=== PATIENT | female | born 1985 | race Caucasian/White ===

== ENCOUNTER 2022-05-01 14:47 | Emergency (ER) | payer BC, OTHER ==
--- OUTSIDE RECORDS SUMMARY | 2022-05-01 14:51 | XMS REPORT | Continuity of Care Document ---
:1985 Author Organization [facility] t Address [address] [place] [address] Care Team Providers Name Role Phone PCP, PATIENT DOES NOT HAVE A Primary Care Physician UnavailETHAN Lambert Attending Clinician Unavailable Ethan Martinez Attending Clinician TAYLOR FUENTES Attending Clinician Unavailable Taylor Fuentes MD Attending Clinician Kike Dale Attending Clinician Doctor Unassigned, [place] Attending Clinician Unavailable Hola Sanford Attending Clinician TAYLOR FUENTES Admitting Clinician Unavailable Payers Payer Name Policy Type Policy Number Effective Date Expiration Date [facility] [id number] 2016 CHOICE MEDICAID 00:00:00 [facility] [place] [id number] 2018 00:00:00 Problems Condition Condition Condition Status Onset Resolution Last Treating Co mments Source Name Details Category Date Date Treatment Clinician Date Well woman Well woman Disease Active U nivers exam exam 5-17 ity of 00:00: [place] 00 Medical Branch Over Over Disease Active Univers weight weight 5-17 ity of 00:00: [place] 00 Medical Branch History of History of Disease Active U nivers tubal tubal 1-11 ity of ligation ligation 00:00: [place] 00 Medical Branch Pain in Pain in Problem Active 2021-04-06 Me moria upper limb upper limb 21:26:47 l (finding) (finding) Julio vickers Active Problem 04/06/2021 Andrew Neuro Paresthesi Problem Active 2021-04-06 Gil ramírez Paresthesi 21:26:47 l (finding) a [place] (finding) Active Problem 04/06/2021 [facility] Headache Headache Problem Active 2021-04-06 Memoria (finding) (finding) 21:26:47 l Active Pedro Problem 04/06/2021 [facility] Migraine Migraine Problem Active 2021-04-06 Memoria (disorder) (disorder) 21:26:47 l Active [place] Problem 04/06/2021 [facility] Vertigo Vertigo Problem Active 2021-04-06 Me moria (finding) (finding) 21:26:47 l Active Pedro Problem 04/06/2021 [facility] Allergies, Adverse Reactions, Alerts Allergy Allergy Status Severity Reaction(s) Onset Inactive Treating Comm ents Source Name Type Date Date Clinician CETIRIZI DRUG Active Other-Cmnt Univ ers NE INGREDI 04-29 ity of 00:00: [place] 00 Medical Branch Cetirizi Propensi Active Other - See U nivers ne ty to comments 04-29 ity of adverse 00:00: [place] reaction 00 Medical s Branch Hydrocod Propensi Active Itching Pt Unive rs one ty to 03-17 reports ity of adverse 00:00: gets 'red [place] reaction 00 and Medical s itchy',ca Branch n take Tyenol #3 without problems though HYDROCOD DRUG Active ITCHING Univers ONE INGREDI 03-17 ity of 00:00: [place] 00 Medical Branch hydrocod hydrocod Active Memori a one one l [place] Social History Social Habit Start Date Stop Date Quantity Comments Source History of Cigarette Smoker Universi ty of tobacco use [facility] Exposure to 2022-04-19 2022-04-29 Unable to assess Univers ity of SARS-CoV-2 00:00:00 13:06:00 [facility] (event) Branch Social History 2020-06-18 2020-06-18 Yandel gasca 18:22:40 18:22:40 Alcohol intake 2017-01-07 2017-01-07 0 /d University of 00:00:00 00:00:00 [facility] Tobacco Comment 2016-04-14 2016-04-14 pt states she Univer sity of 00:00:00 00:00:00 smokes a couple of [place] Medical cigarettes per day Branch Sex Ass[birth year] At [birth year] Universit y of 00:00:00 00:00:00 [facility] Smoking Status Start Date Stop Date Source Smokes tobacco daily 2016-04-14 00:00:[address] [facility] ity of [facility] Medications Ordered Filled Start Stop Current Ordering Indication Dosage Frequency Signature Comments Components Source Medication Medication Date Date Medication? Clinician (SIG) Name Name meek- 2021- No 1{tbl} 1 tablet, [facility] acetaminoph 04-29 Oral, ity of en-caff 23:30: 23:10 ONCE, 1 [place] (ESGIC) 00 :00 dose, On Medical 50-325-40 04/29/22 Bran ch mg tablet 1 at 1830, tablet Routine LORazepam 2021- No .5mg 0.5 mg, [facility] ers (ATIVAN) 04-29 Oral, ity of tablet 0.5 23:00: 23:09 ONCE, 1 [place] as mg 00 :00 dose, On [facility] 04/29/22 Branch at 1800, MARCELLE ibuprofen 2021- No 800mg 800 mg, Uni vers (IBU) 04-29 Oral, ity of tablet 800 22:00: 21:58 ONCE, 1 [place] as mg 00 :00 dose, On [facility] 04/29/22 Branch at 1700, MARCELLE ondansetron 2021- No 4mg 4 mg, [facility] (ZOFRAN-ODT 04-29 Oral, ity of ) 21:15: 21:09 ONCE, 1 [place] disintegrat 00 :00 dose, On Medi jordan ing tablet Thu04/29/22 Bra nch 4 mg at 1615, Routine proMETHazin Yes [id number] 25mg Take 1 Univers e 25 mg 04-29 tablet by ity of tablet 00:00: mouth [place] 00 every 6 Medical (six) Branch hours as needed for Nausea and Vomiting (N/V). 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 meloxicam 2019-08 Yes 7.5 mg = 1 Me moria 7.5 mg oral 0-26 tab, PO, l tablet 18:27: Daily, # Pedro 00 30 tab, 0 Refill(s) Ibuprofen 2019-08 Yes 400 mg = 2 Me moria 200 MG Oral 0-26 cap, PO, l Capsule 18:27: Q4H, PRN Blake n [Advil] 00 Pain, # 120 cap, 0 Refill(s) meclizine 2020- No 25mg 25 mg, Unive rs (TRAVEL-EAS 05-18 Oral, ity of E 02:45: 01:57 ONCE, 1 [place] (MECLIZINE) 00 :00 dose, [facility] Med ical ) tablet 25 05/17/20 at Br anch mg 2145, MARCELLE iohexol 2019- No 120mL 120 mL, Unive rs (OMNIPAQUE 05-18 Intravenou it y of 350 00:00: 00:00 s, ONCE, 1 [place] BULK-150 00 :00 dose, [facility] Medica l mL) 05/17/20 at Branch injection 1900, 120 mL Routine ondansetron 2019- No 4mg 4 mg, Slow Univers (ZOFRAN 05-17 IV Push, ity of (PF)) 23:00: 21:52 ONCE, 1 [place] injection 4 00 :00 dose, [facility] Med ical mg 05/17/20 at Branch 1800, MARCELLE NaCl 0.9% 2020- No 1000mL at 999 Uni vers (NS) bolus 05-17 mL/hr, ity of infusion 22:00: 01:00 1,000 mL, [place] as 1,000 mL 00 :00 IV Medical Infusion, Branch ONCE, 1 dose, Hoda 05/17/20 at 1700, STAT ibuprofen Yes 600mg Take 1 Unive rs 600 mg 3-31 tablet by ity of tablet 00:00: mouth [place] 00 every 6 Medical (six) Branch hours as needed for Pain (scale 1-3) or Pain (scale 4-6). Take with food or milk. ibuprofen 2017-0 Yes 600mg Take 1 Unive rs 600 mg 3-31 tablet by ity of tablet 00:00: mouth [place] 00 every 6 Medical (six) Branch hours as needed for Pain (scale 1-3) or Pain (scale 4-6). Take with food or milk. ibuprofen 2017-0 Yes 600mg Take 1 Unive rs 600 mg 3-31 tablet by ity of tablet 00:00: mouth [place] 00 every 6 Medical (six) Branch hours as needed for Pain (scale 1-3) or Pain (scale 4-6). Take with food or milk. ibuprofen 2017-0 Yes 600mg Take 1 Unive rs 600 mg 3-31 tablet by ity of tablet 00:00: mouth [place] 00 every 6 Medical (six) Branch hours as needed for Pain (scale 1-3) or Pain (scale 4-6). Take with food or milk. Immunizations Ordered Filled Immunization Date Status Comments [facility] Immunization Name Name [facility] 2016-09-03 Completed University of 00:00:00 [facility] 2016-09-03 Completed University of 00:00:00 [facility] 2016-09-03 Completed University of 00:00:00 [facility] 2016-09-03 Completed University of 00:00:00 [facility] 2014-04-14 Completed University of 00:00:00 [facility] 2014-04-14 Completed University of 00:00:00 [facility] 2014-04-14 Completed University of 00:00:00 [facility] 2014-04-14 Completed University of 00:00:00 [facility] Vital Signs Vital Name Observation Time Observation Value Comments Source Respiratory rate 2022-04-29 23:10:00 18 /min Univ ersity of [facility] Oxygen saturation in 2022-04-29 23:10:00 99 /min [facility] Arterial blood by [facility] Pulse oximetry Branch Systolic blood 2022-04-29 23:10:00 130 mm[Hg] Univer sity of pressure [facility] Diastolic blood 2022-04-29 23:10:00 78 mm[Hg] Unive rsity of pressure [facility] Heart rate 2022-04-29 23:10:00 78 /min Universi ty [facility] [place] [facility] Body temperature 2022-04-29 18:14:00 36.67 Diane Univ ersity of [place] [facility] Systolic blood 2022-04-28 03:00:00 134 mm[Hg] Univer sity of pressure [place] [facility] Diastolic blood 2022-04-28 03:00:00 88 mm[Hg] Unive rsity of pressure [place] [facility] Heart rate 2022-04-28 03:00:00 73 /min Universi ty of [place] [facility] Respiratory rate 2022-04-28 03:00:00 10 /min Univ ersity of [place] [facility] Oxygen saturation in 2022-04-28 03:00:00 99 /min University of Arterial blood by [place] eblizz jordan Pulse oximetry Branch Body temperature 2022-04-28 01:20:00 37.22 Diane Univ ersity of [place] [facility] Body height 2022-04-28 01:20:00 165.1 cm Universi ty of [place] [facility] Body weight 2022-04-28 01:20:00 69.854 kg Universi ty of [place] [facility] BMI 2022-04-28 01:20:00 25.63 kg/m2 Universi ty [facility] [place] [facility] Systolic blood 2020-05-18 01:00:00 107 mm[Hg] Univer sity of pressure [place] [facility] Diastolic blood 2020-05-18 01:00:00 74 mm[Hg] Unive rsity of pressure [place] [facility] Heart rate 2020-05-18 01:00:00 66 /min Universi ty of [place] [facility] Respiratory rate 2020-05-18 01:00:00 17 /min Univ ersity of [place] [facility] Oxygen saturation in 2020-05-18 01:00:00 99 /min University of Arterial blood by [place] eblizz jordan Pulse oximetry Branch Body temperature 2020-05-17 19:33:00 36.67 Diane Univ ersity of [place] [facility] Body height 2020-05-17 19:33:00 162.6 cm Universi ty [facility] [place] [facility] Body weight 2020-05-17 19:33:00 79.379 kg Universi ty [facility] [place] [facility] BMI 2020-05-17 19:33:00 30.04 kg/m2 Universi ty [facility] [place] [facility] Systolic (mm Hg) 2020-09-28 20:29:00 [place] rial [place] Diastolic (mm Hg) 2020-09-28 20:29:00 Mem orial [place] Heart Rate 2020-09-28 20:29:00 [facility] [place] Respitory Rate 2020-09-28 20:29:00 Memori al [place] Height 2020-09-28 20:29:00 165.1 cm [facility] [place] Weight 2020-09-28 20:29:00 [facility] [place] BMI Calculated 2020-09-28 20:29:00 Memori al [place] Systolic (mm Hg) 2020-07-17 17:28:00 [place] rial [place] Diastolic (mm Hg) 2020-07-17 17:28:00 Mem orial [place] Heart Rate 2020-07-17 17:28:00 [facility] [place] Respitory Rate 2020-07-17 17:28:00 Memori al [place] Height 2020-07-17 17:28:00 165.1 cm [facility] [place] Weight 2020-07-17 17:28:00 [facility] [place] BMI Calculated 2020-07-17 17:28:00 Memori al [place] Systolic (mm Hg) 2020-06-18 18:21:00 [place] rial [place] Diastolic (mm Hg) 2020-06-18 18:21:00 Mem orial [place] Heart Rate 2020-06-18 18:21:00 [facility] [place] Respitory Rate 2020-06-18 18:21:00 Memori al [place] Height 2020-06-18 18:21:00 165.1 cm [facility] [place] Weight 2020-06-18 18:21:00 [facility] [place] BMI Calculated 2020-06-18 18:21:00 Memori al [place] Procedures Procedure Date / Time Performing Clinician Source Performed LIPASE 2022-04-29 19:11:00 Ethan Zhao [facility] COMP. METABOLIC PANEL 2022-04-29 19:11:00 Ethan Zhao [facility] ([id number]) Medical Branch CBC WITH DIFF 2022-04-29 19:11:00 Ethan Zhao [facility] URINALYSIS 2022-04-29 19:11:00 Ethan Zhao [facility] CONSENT/REFUSAL FOR 2022-04-29 18:07:52 Doctor Unassigned, No Un [facility] DIAGNOSIS AND TREATMENT Name Medical Branch CT HEAD WO CONTRAST 2022-04-28 02:47:18 Taylor Fuentes [facility] POCT TEST 2022-04-28 02:02:00 Taylor Fuentes [facility] COMP. METABOLIC PANEL 2022-04-28 01:59:00 Taylor Fuentes [facility] ([id number]) Medical [place] CBC WITH DIFF 2022-04-28 01:59:00 Taylor Fuentes [facility] URINALYSIS 2022-04-28 01:59:00 Taylor Fuentes [facility] URINE DRUG (IMMUNOASSAY) 2022-04-28 01:59:00 Taylor Fuentes [facility] DRUG Medical [facility] nch SCREEN W/O REFLEX NOTICE OF PRIVACY 2022-04-28 01:28:52 Doctor Unassigned, No [facility]REFUSAL FOR 2022-04-28 01:10:58 Doctor Unassigned, No [facility] AUTHORIZATION FOR 2020-06-27 06:01:00 Doctor Unassigned, No [facility] RELEASE OF PHI [facility] CT ANGIOGRAM HEAD 2020-05-17 23:57:42 Hola Rubi [facility] CT ANGIOGRAM NECK 2020-05-17 23:57:42 Hola Rubi [facility] POCT TEST 2020-05-17 21:28:00 Hola Rubi [facility] MAGNESIUM 2020-05-17 21:23:00 Hola Rubi [facility] COMP. METABOLIC PANEL 2020-05-17 21:23:00 Hola Rubi [facility] ([id number]) [facility] CBC WITH DIFF 2020-05-17 21:23:00 Hola Rubi [facility] URINALYSIS 2020-05-17 21:20:00 Hola Rubi [facility] CT HEAD WO CONTRAST 2020-05-17 21:13:44 Hola Rubi [facility] NOTICE OF PRIVACY 2020-05-17 19:11:22 Doctor Unassigned, No Univ ersity [facility] CONSENT/REFUSAL FOR 2020-05-17 19:11:10 Doctor Unassigned, No [facility]NOS[facility] AND TREATMENT Name [facility] Tubal ligation [facility] Encounters Start End Encounter Admission Attending Care Care Encounter Source Date/Time Date/Time Type Type Clinicians Facility Department ID 2021-06-21 Emergency [facility] [id number] Univers 19:17:06 ity [facility] 2022-04-29 2022-04-29 Emergency [facility] [id number] Univers 13:45:00 18:12:00 [facility] 2022-04-29 2022-04-29 [facility] [id number] Univers 13:45:00 18:12:00 Ethan TREVIÑO [id number] i ty [facility] 4.2.7.2.686 [facility] [id number] [address] 2022-04-27 2022-04-27 Emergency [facility] [id number] Univers 20:26:00 22:54:00 [facility] 2022-04-27 2022-04-27 [facility] [id number] Univers 20:26:00 22:54:00 Taylor TREVIÑO 350.1.13.10 i ty of [facility] 4.2.7.2.686 [facility] [id number] [address] 2021-04-04 2021-04-04 Ambulatory nullFlavo MNA [id number] Memoria 14:45:00 14:45:00 Pre-Reg r Neurology 07 l Reymundo Vasquez 2021-04-04 2021-04-04 Outpatient CATHI DaleSCHDARLENE [id number] 09:45:00 09:45:00 Kike Garsia 2021-03-28 2021-03-28 Outpatient MANDIIE SUDHA [id number] Memoria 14:00:00 14:00:00 07 l Pdero 2020-09-28 2020-09-29 Outpatient nullFlavo MNA [id number] Memoria 20:30:00 05:59:59 r Neurology 06 l [place] 2020-09-28 2020-09-28 Outpatient Chito, MHMISCHER MHMISCHER [id number] 14:30:00 23:59:59 Kike 06 Ady 2020-09-28 2020-09-28 Outpatient MHIE MHIE [id number] Memoria 14:30:00 14:30:00 06 yuriy Vasquez 2020-07-17 2020-07-18 Outpatient nullFlavo MNA [id number] Memoria 17:30:00 05:59:59 r Neurology 05 l Reymundo Vasquez 2020-07-17 2020-07-17 Outpatient Chito, MHMISCHER MHMISCHER [id number] 11:30:00 23:59:59 Kike 05 Ady 2020-07-17 2020-07-17 Outpatient MHIE MHIE [id number] Memoria 11:30:00 11:30:00 05 yuriy Vasquez 2020-06-27 2020-06-27 Orders Doctor MARTINEZ [id number] Univers 00:00:00 00:00:00 Only Unassigned, FLORINDA 350.1.13.10 ity of [place] [facility] 4.2.7.2.686 [place] [id number] [facility] 009 Branch 2020-06-18 2020-06-19 Outpatient nullFlavo MNA [id number] Memoria 18:30:00 04:59:59 r Neurology 04 l Reymundo Vasquez 2020-06-18 2020-06-18 Outpatient Chito, MHMISCHER MHMISCHER [id number] 13:30:00 23:59:59 Kike 04 Ady 2020-06-18 2020-06-18 Outpatient MHIE MHIE [id number] Memoria 13:30:00 13:30:00 04 yuriy Pedro 2020-05-17 2020-05-17 Emergency Hola Rubi MTANDREW [id number] Univers 14:34:00 21:34:00 Cindy Treviño 350.1.13.10 i ty of [place] 4.2.7.2.686 [facility] [id number] [facility] 084 Branch 2020-01-18 2020-01-19 Outpatient nullFlavo MNA [id number] Memoria 13:15:00 04:59:59 r Neurology 03 l [place]phine Vasquez 2020-01-18 2020-01-18 Outpatient CATHI Dale [facility] [id number] 08:15:00 23:59:59 Kike 03 Ady 2020-01-18 2020-01-18 Outpatient SUDHA HALEY [id number] [facility] 08:15:00 08:15:00 03 l Pedro Results Test Description Test Time Test Comments Results Result Comments Source COMP. METABOLIC PANEL (05577) 2022-04-29 20:06:04 Test Item Value Reference Range Interpretation Comme nts NA (test code = 4927758855) 139 mmol/L 135-145 K (test code = 6689899809) 4.0 mmol/L 3.5-5 CL (test code = 8750286039) 101 mmol/L 98-108 CO2 TOTAL (test code = 1078172025) 28 mmol/L 23-31 AGAP (test code = 2143224870) 2-16 BUN (test code = 6274547571) 5 mg/dL 7-23 L GLUCOSE (test code = 6599074794) 92 mg/dL 70-110 CREATININE (test code = 0.64 mg/dL 0.5-1.04 5189082561) TOTAL BILI (test code = 1.0 mg/dL 0.1-1.9 5210026899) CALCIUM (test code = 2751304977) 9.8 mg/dL 8.6-10.6 T PROTEIN (test code = 4081724660) 8.0 g/dL 6.3-8.2 ALBUMIN (test code = 3873939772) 4.9 g/dL 3.5-5 ALK PHOS (test code = 2236062990) 78 U/L 34-122 ALTv (test code = 1742-6) 18 U/L 5-35 AST(SGOT) (test code = 5307279375) 23 U/L 13-40 eGFR (test code = 7576628083) mL/min/1.73m2 CHANCE (test code = CHANCE) Association of Glomerular Filtration Rate (GFR) and Staging of Kidney Disease* + +-------- + ------+| GFR (mL/min/1.73 m2) ?| With Kidney Damage ?| ?Without Kidney Damage+ +-- + +| ?>90 ?| ?Stage one ?| ? Normal ?+ +------- + -------+| ?60-89 ?| ?Stage two ?| ? Decreased GFR ? + +-------- + ------+| ?30-59 ?| ?Stage three ?| ? Stage three ? + +-------- + ------+| ?15-29 ?| ?Stage four ? | ? Stage four ?+ +------- + -------+| ?<15 (or dialysis) ? ?| ?Stage five ? | ? Stage five ?+ +------- + -------+ *Each stage assumes the associated GFR level has been in effect for at least three months. ?Stages 1 to 5, with or without kidney disease, indicate chronic kidney disease. Notes: Determination of stages one and two (with eGFR >59mL/min/1.73 m2) requires estimation of kidney damage for at least three months as defined by structural or functional abnormalities of the kidney, manifested by either:Pathological abnormalities or Markers of kidney damage (including abnormalities in the composition of the blood or urine or abnormalities in imaging tests). Lab Interpretation (test code = Abnormal 10616-6) [facility]43 Test Item Value Reference Range Interpretation Comments LIPASE (test code = 1389251170) 48 U/L 0-220 Lab Interpretation (test code = Normal 86626-1) [facility] WITH [id number] 19:54:00 Test Item Value Reference Range Interpretation Comments WBC (test code = See_Comment [Automated 8100-2) message] The sy stem which generated this result transmitted reference range : 4.30 - 11.10 10*3/?L. The reference range was not used to interpret this result as normal/abnormal . RBC (test code = See_Comment [Automated 147-6) message] The sy stem which generated this result transmitted reference range : 3.93 - 5.25 10*6/?L. The reference range was not used to interpret this result as normal/abnormal . HGB (test code = 13.9 g/dL 11.6-15 718-7) HCT (test code = 40.7 % 35.7-45.2 4544-3) MCV (test code = 88.3 fL 80.6-95.5 787-2) MCH (test code = 30.2 pg 25.9-32.8 785-6) MCHC (test code = 34.2 g/dL 31.6-35.1 786-4) RDW-SD (test code = 40.9 fL 39-49.9 57787-2) RDW-CV (test code = 12.6 % 12-15.5 788-0) PLT (test code = See_Comment H [Automated 777-3) message] The sy stem which generated this result transmitted reference range : 166 - 358 10*3/ ?L. The reference r samantha was not used to interpret this result as normal/abnormal . MPV (test code = 8.4 fL 9.5-12.9 L 87352-8) NRBC/100 WBC (test See_Comment [Automat ed code = 1237509579) message] The system which generated this result transmitted reference range : 0.0 - 10.0 /100 WBCs. The refer ence range was not u sed to interpret th is result as normal/abnormal . NRBC x10^3 (test code See_Comment [Auto mated = 6835700215) message] The s ystem which generated this result transmitted reference range : 10*3/?L. The reference range was not used to interpret this result as normal/abnormal . GRAN MAT (NEUT) % 72.5 % (test code = 770-8) IMM GRAN % (test code 0.30 % = 4344406132) LYMPH % (test code = 21.0 % 736-9) MONO % (test code = 5.7 % 5905-5) EOS % (test code = 0.3 % 713-8) BASO % (test code = 0.2 % 706-2) GRAN MAT x10^3(ANC) 6.21 10*3/uL 1.88-7.09 (test code = 8673125025) IMM GRAN x10^3 (test 0.03 10*3/uL 0-0.06 code = 0794838638) LYMPH x10^3 (test code 1.80 10*3/uL 1.32-3.29 = 731-0) MONO x10^3 (test code 0.49 10*3/uL 0.33-0.92 = 742-7) EOS x10^3 (test code = 0.03 10*3/uL 0.03-0.39 711-2) BASO x10^3 (test code 0.01-0.07 = 704-7) Lab Interpretation Abnormal (test code = 80780-9) [facility]. METABOLIC PANEL (83674)2022-04-28 02:24:27 Test Item Value Reference Range Interpretation Comments NA (test code = 138 mmol/L 135-145 0991822644) K (test code = 3.9 mmol/L 3.5-5 4540127911) CL (test code = 102 mmol/L 98-108 0141776979) CO2 TOTAL (test code 27 mmol/L 23-31 = 1755980607) AGAP (test code = 2-16 5569098711) BUN (test code = 7 mg/dL 7-23 1526516720) GLUCOSE (test code = 108 mg/dL 70-110 9532522104) CREATININE (test code 0.70 mg/dL 0.5-1.04 = 0141600653) TOTAL BILI (test code 0.4 mg/dL 0.1-1.1 = 6427640329) CALCIUM (test code = 9.6 mg/dL 8.6-10.6 2554238154) T PROTEIN (test code 7.3 g/dL 6.3-8.2 = 4384156369) ALBUMIN (test code = 4.5 g/dL 3.5-5 7273347808) ALK PHOS (test code = 78 U/L 34-122 7682990072) ALTv (test code = 18 U/L 5-35 1742-6) AST(SGOT) (test code 23 U/L 13-40 = 4315970140) eGFR (test code = mL/min/1.73m2 9994131064) CHANCE (test code = CHANCE) Association of Glomerular Filtration Rate (GFR) and Staging of Kidney Disease* + + +- +| GFR (mL/min/1.73 m2) ?| With Kidney Damage ?| ?Without Kidney Damage+ ------+ ----+ ------+| ?>90 ?| ?Stage one ?| ? Normal ?+ -+ + -+| ?60-89 ?| ?Stage two ?| ? Decreased GFR ? + + +- +| ?30-59 ?| ?Stage three ?| ? Stage three ? + + +- +| ?15-29 ?| ?Stage four ? | ? Stage four ?+ -+ + -+| ?<15 (or dialysis) ? ?| ?Stage five ? | ? Stage five ?+ -+ + -+ *Each stage assumes the associated GFR level has been in effect for at least three months. ?Stages 1 to 5, with or without kidney disease, indicate chronic kidney disease. Notes: Determination of stages one and two (with eGFR >59mL/min/1.73 m2) requires estimation of kidney damage for at least three months as defined by structural or functional abnormalities of the kidney, manifested by either:Pathological abnormalities or Markers of kidney damage (including abnormalities in the composition of the blood or urine or abnormalities in imaging tests). [facility] WITH [id number] 02:13:45 Test Item Value Reference Range Interpretation Comments WBC (test code = See_Comment [Automated 4545-2) message] The sy stem which generated this result transmitted reference range : 4.30 - 11.10 10*3/?L. The reference range was not used to interpret this result as normal/abnormal . RBC (test code = See_Comment [Automated 059-8) message] The sy stem which generated this result transmitted reference range : 3.93 - 5.25 10*6/?L. The reference range was not used to interpret this result as normal/abnormal . HGB (test code = 13.1 g/dL 11.6-15 718-7) HCT (test code = 38.4 % 35.7-45.2 4544-3) MCV (test code = 88.5 fL 80.6-95.5 787-2) MCH (test code = 30.2 pg 25.9-32.8 785-6) MCHC (test code = 34.1 g/dL 31.6-35.1 786-4) RDW-SD (test code = 40.3 fL 39-49.9 84311-2) RDW-CV (test code = 12.5 % 12-15.5 788-0) PLT (test code = See_Comment H [Automated 777-3) message] The sy stem which generated this result transmitted reference range : 166 - 358 10*3/ ?L. The reference r samantha was not used to interpret this result as normal/abnormal . MPV (test code = 8.4 fL 9.5-12.9 L 19183-7) NRBC/100 WBC (test See_Comment [Automat ed code = 0132172264) message] The system which generated this result transmitted reference range : 0.0 - 10.0 /100 WBCs. The refer ence range was not u sed to interpret th is result as normal/abnormal . NRBC x10^3 (test code See_Comment [Auto mated = 4107384943) message] The s ystem which generated this result transmitted reference range : 10*3/?L. The reference range was not used to interpret this result as normal/abnormal . GRAN MAT (NEUT) % 70.7 % (test code = 770-8) IMM GRAN % (test code 0.30 % = 9161056539) LYMPH % (test code = 21.0 % 736-9) MONO % (test code = 6.8 % 5905-5) EOS % (test code = 0.9 % 713-8) BASO % (test code = 0.3 % 706-2) GRAN MAT x10^3(ANC) 6.10 10*3/uL 1.88-7.09 (test code = 8773528454) IMM GRAN x10^3 (test 0.03 10*3/uL 0-0.06 code = 6215378926) LYMPH x10^3 (test code 1.82 10*3/uL 1.32-3.29 = 731-0) MONO x10^3 (test code 0.59 10*3/uL 0.33-0.92 = 742-7) EOS x10^3 (test code = 0.08 10*3/uL 0.03-0.39 711-2) BASO x10^3 (test code 0.03 10*3/uL 0.01-0.07 = 704-7) Lab Interpretation Abnormal (test code = 56932-2) [id number]00 Test Item Value Reference Range Interpretation Comments POCT PREG (test code = 1605) Negative On board controls acceptable with Present C Line (test code = 3574) POCT PREG LOT # (test code = 3575) [id number] POCT PREG TEST DATE (test 07-23-2023 code = 3576) Lab Interpretation (test code = Normal 06011-3) [facility] [id number] 01:34:20 Unremarkable CTA of the head and neck without high-grade stenosis orvascular occlusions. Preliminary Report Dictated by Resident: Sapna Mitchell MD., have reviewed this studyand agree with theabove report.EXAM: CT ANGIOGRAM HEAD, CT ANGIOGRAM NECK COMPARISON: ?None HISTORY: Stroke suspected, ataxia TECHNIQUE: Axial CT imaging of the [place] and from the skull baseto the superior mediastinum was obtained during arterial phase after theintravenous administration ofIV contrast. Coronal, sagittal, and MIPS wereconstructed. FINDINGS: HEAD: The PICA origin is visualized bilaterally. The basilar artery is normal incaliber. The superior cerebellar arteries are unremarkable. Left posteriorcommunicating artery is identified. A faint right posterior tocommunicating artery is noted. The distal cervical, petrous, cavernous and supraclinoid internal carotidarteries are unremarkable. The anterior and middle cerebral arteries areunremarkable. An anterior communicating artery is visualized. NECK: Aortic arch and arch vessel origins: Classic three- vessel branching anatomyofthe aortic arch is seen. The ostia of the major branching vessels arefree of stenosis. Innominate and subclavian arteries: The innominate and subclavian arteriesare widely patent throughout their course. Common carotids: The common carotid arteries are patent to the level of thecarotid bulbs. No significant atherosclerotic disease is seen at thecarotid bulbs. The bilateral ICAs are patent throughout their cervicalcourse. Vertebral arteries: The vertebral arteries are widely patent throughouttheir course. [facility], Radiant Results Inft User - 05/17/2020 8:35 PM CDTEXAM: CT ANGIOGRAM HEAD, CT ANGIOGRAM NECKCOMPARISON: NoneHISTORY: Stroke suspected, ataxia TECHNIQUE: Axial CT imaging of the [place] and from the skull baseto the superior mediastinum was obtained during arterial phase after theintravenous administration of IV contrast. Coronal, sagittal, and MIPS wereconstructed.FINDINGS:HEAD:The PICA origin is visualized bilaterally. The basilar artery is normal incaliber. The superior cerebellar arteries are unremarkable. Left posteriorcommunicating artery is identified. A faint right posterior tocommunicating artery is noted.The distal cervical, petrous, cavernous and supraclinoid internalcarotidarteries are unremarkable. The anterior and middle cerebral arteries areunremarkable. An anterior communicating artery is visualized.NECK:Aortic arch and arch vessel origins: Classic three-vessel branching anatomyof the aortic arch is seen. The ostia of the major branching vessels arefree of stenosis.Innominate and subclavian arteries: The innominate and subclavian arteriesare widely patent throughout their course.Common carotids: The common carotid arteries are patent to the level of thecarotid bulbs. No significant atherosclerotic disease is seen at thecarotid bulbs. The bilateral ICAs arepatent throughout their cervicalcourse.Vertebral arteries: The vertebral arteries are widely patent throughouttheir course.IMPRESSIONUnremarkable CTA of the head and neck without high-grade stenosis orvascular occlusions.Preliminary Report Dictated by Resident: Sapna Palma MD., have reviewed this study and agree with theabove report.[facility] 2020-05-18 01:34:20 Unremarkable CTA of the head and neck without high-grade stenosis orvascular occlusions. Preliminary Report Dictated by Resident: Sapna Mitchell MD., have reviewed this studyand agree with theabove report.EXAM: CT ANGIOGRAM HEAD, CT ANGIOGRAM NECK COMPARISON: ?None HISTORY:Stroke suspected, ataxia TECHNIQUE: Axial CT imaging of the [place] and from the skull baseto the superior mediastinum was obtained during arterial phase after theintravenous administration ofIV contrast. Coronal, sagittal, and MIPS wereconstructed. FINDINGS: HEAD: The PICA origin is visualiz ed bilaterally. The basilar artery is normal incaliber. The superior cerebellar arteries are unremarkable. Left posteriorcommunicating artery is identified. A faint right posterior tocommunicating artery is noted. The distal cervical, petrous, cavernous and supraclinoid internal carotidarteries are unremarkable. The anterior and middle cerebral arteries areunremarkable. An anterior communicating artery is visualized. NECK: Aortic arch and arch vessel origins: Classic three-vessel branching anatomyofthe aortic arch is seen. The ostia of the major branching vessels arefree of stenosis. Innominate and subclavian arteries: The innominate and subclavian arteriesare widely patent throughout their course. Common carotids: The common carotid arteries are patent to the level of thecarotid bulbs. No significant atherosclerotic disease is seen at thecarotid bulbs. The bilateral ICAs are patent throughout their cervicalcourse. Vertebral arteries: The vertebral arteries are widely patent throughouttheir cou rse. [facility], Radiant Results Inft User - 05/17/2020 8:35 PM CDTEXAM: CT ANGIOGRAM HEAD, CT ANGIOGRAM NECKCOMPARISON: NoneHISTORY: Stroke suspected, ataxia TECHNIQUE: Axial CT imaging of the [place] and from the skull baseto the superior mediastinum was obtained during arterial phase after theintravenous administration of IV contrast. Coronal, sagittal, and MIPS wereconstructed.FINDINGS:HEAD:The PICA origin is visualized bilaterally. The basilar artery is normal incaliber. The superior cerebellar arteries are unremarkable. Left posteriorcommunicating artery is identified. A faint right posterior tocommunicating artery is noted.The distal cervical, petrous, cavernous and supraclinoid internalcarotidarteries are unremarkable. The anterior and middle cerebral arteries areunremarkable. An anterior communicating artery is visualized.NECK:Aortic arch and arch vessel origins: Classic three-vessel branching anatomyof the aortic arch is seen. The ostia of the major branching vessels arefree of stenosis.Innominate and subclavian arteries: The innominate and subclavian arteriesare widely patent throughout their course.Common carotids: The common carotid arteries are patent to the level of thecarotid bulbs. No significant atherosclerotic disease is seen at thecarotid bulbs. The bilateral ICAs arepatent throughout their cervicalcourse.Vertebral arteries: The vertebral arteries are widely patent throughouttheir course.IMPRESSIONUnremarkable CTA of the head and neck without high-grade stenosis orvascular occlusions.Preliminary Report Dictated by Resident: Sapna Palma MD., have reviewed this study and agree with theabove report.[facility]IN[facility]2020[facility] 22:10:00 Test Item Value Reference Range Interpretation Comments APPEARANCE (test code = Clear Clear 4203164860) COLOR (test code = Yellow Yellow 2855705255) PH (test code = 4.8-8.0 6538715016) SP GRAVITY (test code = 1.003-1.030 5502996665) GLU U QUAL (test code = Normal Normal 8075345720) BLOOD (test code = 2+ Negative A 2947537926) KETONES (test code = Negative Negative 2039758204) PROTEIN (test code = Negative Negative 2887-8) UROBILIN (test code = 2.0 mg/dL Normal A 6548269634) BILIRUBIN (test code = Negative Negative 1836411738) NITRITE (test code = Negative Negative 5090865628) LEUK LEONEL (test code = Negative Negative 5158095014) RBC/HPF (test code = See_Comment H [Autom ated message] 1643137331) The system [employer] generated this result transmit desean reference range : 0 - 3 HPF. The refe rence range was not u sed to interpret th is result as normal/abnormal . WBC/HPF (test code = See_Comment [Autom ated message] 6175127074) The system [employer] generated this result transmit desean reference range : 0 - 5 HPF. The refe rence range was not u sed to interpret th is result as normal/abnormal . BACTERIA (test code = Few Negative A 7237766284) MUCOUS (test code = Slight Negative LPF A 0689202769) SQ EPITH (test code = HPF 7994039785) Lab Interpretation (test Abnormal code = 79070-7) [facility] CenterCOMP. METABOLIC PANEL ([id number])2020-05-17 21:58:00 Test Item Value Reference Range Interpretation Comments NA (test code = 140 mmol/L 135-145 8208813688) K (test code = 3.8 mmol/L 3.5-5 1684447699) CL (test code = 103 mmol/L 98-108 6236556652) CO2 TOTAL (test code = 27 mmol/L 23-31 0625251100) AGAP (test code = 2-16 2334236079) BUN (test code = 7 mg/dL 7-23 6601031425) GLUCOSE (test code = 106 mg/dL 70-110 1853829898) CREATININE (test code 0.68 mg/dL 0.5-1.04 = 1421048141) TOTAL BILI (test code 0.3 mg/dL 0.1-1.1 = 8748831049) CALCIUM (test code = 9.3 mg/dL 8.6-10.6 6553685303) T PROTEIN (test code = 7.6 g/dL 6.3-8.2 8741531583) ALBUMIN (test code = 4.2 g/dL 3.5-5 6392198360) ALK PHOS (test code = 93 U/L 34-122 0565888349) ALTv (test code = 18 U/L 5-35 1742-6) AST(SGOT) (test code = 25 U/L 13-40 3062074440) eGFR Calculation mL/min/1.73m2 (Non-) (test code = 6092162685) eGFR Calculation mL/min/1.73m2 () (test code = 7854340436) CHANCE (test code = CHANCE) Association of Glomerular Filtration Rate (GFR) and Staging of Kidney Disease* + -+ + ---+| GFR (mL/min/1.73 m2) ?| With Kidney Damage ?| ?Without Kidney Damage+ -------+ ------+ ---------+| ?>90 ?| ?Stage one ?| ? Normal ?+ --+ -+ ----+| ?60-89 ?| ?Stage two ?| ? Decreased GFR ? + -+ + ---+| ?30-59 ?| ?Stage three ?| ? Stage three ? + -+ + ---+| ?15-29 ?| ?Stage four ? | ? Stage four ?+ --+ -+ ----+| ?<15 (or dialysis) ? ?| ?Stage five ? | ? Stage five ?+ --+ -+ ----+ *Each stage assumes the associated GFR level has been in effect for at least three months. ?Stages 1 to 5, with or without kidney disease, indicate chronic kidney disease. Notes: Determination of stages one and two (with eGFR >59mL/min/1.73 m2) requires estimation of kidney damage for at least three months as defined by structural or functional abnormalities of the kidney, manifested by either:Pathological abnormalities or Markers of kidney damage (including abnormalities in the composition of the blood or urine or abnormalities in imaging tests). [facility]UM2020-[facility] 21:58:00 Test Item Value Reference Range Interpretation Comments MAGNESIUM (test code = 0258691376) 2.3 mg/dL 1.7-2.4 Lab Interpretation (test code = Normal 65874-6) [facility] WITH [id number] 21:46:00 Test Item Value Reference Range Interpretation Comments WBC (test code = See_Comment [Automated 9790-2) message] The sy stem which generated this result transmitted reference range : 4.30 - 11.10 10*3/?L. The reference range was not used to interpret this result as normal/abnormal . RBC (test code = See_Comment [Automated 769-8) message] The sy stem which generated this result transmitted reference range : 3.93 - 5.25 10*6/?L. The reference range was not used to interpret this result as normal/abnormal . HGB (test code = 14.0 g/dL 11.6-15 718-7) HCT (test code = 41.1 % 35.7-45.2 4544-3) MCV (test code = 90.1 fL 80.6-95.5 787-2) MCH (test code = 30.7 pg 25.9-32.8 785-6) MCHC (test code = 34.1 g/dL 31.6-35.1 786-4) RDW-SD (test code = 42.3 fL 39-49.9 29800-4) RDW-CV (test code = 12.9 % 12-15.5 788-0) PLT (test code = See_Comment H [Automated 447-3) message] The sy stem which generated this result transmitted reference range : 166 - 358 10*3/ ?L. The reference r samantha was not used to interpret this result as normal/abnormal . MPV (test code = 8.9 fL 9.5-12.9 L 13505-8) NRBC/100 WBC (test See_Comment [Automat ed code = 9384986736) message] The system which generated this result transmitted reference range : 0.0 - 10.0 /100 WBCs. The refer ence range was not u sed to interpret th is result as normal/abnormal . NRBC x10^3 (test code <0.01 See_Comment [Auto mated = 1747937466) message] The s ystem which generated this result transmitted reference range : 10*3/?L. The reference range was not used to interpret this result as normal/abnormal . GRAN MAT (NEUT) % 63.4 % (test code = 770-8) IMM GRAN % (test code 0.20 % = 3587128879) LYMPH % (test code = 28.3 % 736-9) MONO % (test code = 6.1 % 5905-5) EOS % (test code = 1.5 % 713-8) BASO % (test code = 0.5 % 706-2) GRAN MAT x10^3(ANC) 5.54 10*3/uL 1.88-7.09 (test code = 8982415847) IMM GRAN x10^3 (test <0.03 0-0.06 code = 8802362201) LYMPH x10^3 (test code 2.47 10*3/uL 1.32-3.29 = 731-0) MONO x10^3 (test code 0.53 10*3/uL 0.33-0.92 = 742-7) EOS x10^3 (test code = 0.13 10*3/uL 0.03-0.39 711-2) BASO x10^3 (test code 0.04 10*3/uL 0.01-0.07 = 704-7) Lab Interpretation Abnormal (test code = 81110-8) [facility] [id number] 21:35:30 No acute intracranial abnormality. Preliminary Report Dictated by Resident: Sapna Choudhury reviewed this study and agree with the above reportwith the following additions: The ASPECTS score is estimated to be 10. . Sapna Rose MD., have reviewed this study and agree with theabove report.EXAM: CT HEAD WO CONTRAST HISTORY: Stroke suspected, ataxia COMPARISON: ?None. TECHNIQUE: CT head was obtained and reconstructed into axial, coronal andsagittal projection images. FINDINGS: The ventricles and cerebral sulci are normal in caliber and configuration.No hydrocephalus, midline shift or pathological extra-axial fluidcollection is present. The basal cisterns are unremarkable. There is no acute intracranial hemorrhage or significant mass effect. Noparenchymal attenuation abnormality. The snell-white matter differentiationis preserved. Focal mucosal thickening is seen in the right sphenoid sinus, representinga retention cyst. The mastoid air cells and remaining paranasal air sinusesare clear. The calvarium and central skull base are unremarkable. [facility], Radiant Results Inft User - 05/17/2020 4:36 PM CDTEXAM: CT HEAD WO CONTRASTHISTORY: Stroke suspected, ataxia COMPARISON:None.TECHNIQUE: CT head was obtained and reconstructed into axial, coronal andsagittal projection images.FINDINGS:The ventricles and cerebral sulci are normal in caliber and configuration.No hydrocephalus, midline shift or pathological extra- axial fluidcollection is present. The basal cisterns are unremarkable.There is no acute intracranial hemorrhage or significant mass effect. Noparenchymal attenuation abnormality. The snell-white matter differentiationis preserved.Focal mucosal thickening is seen in the right sphenoid sinus, representinga retention cyst. The mastoid air cells and remaining paranasal air sinusesare clear.The calvarium and central skull base are unremarkable.IMPRESSIONNo acute intr acranial abnormality. Preliminary Report Dictated by Resident: Sapna Cisneros reviewed this study and agree with the above reportwith the following additions: The ASPECTS score is estimated to be 10..Sapna Rose MD., have reviewed this study and agree with theabove report. [facility]PO[facility] [id number] 21:28:00 Test Item Value Reference Range Interpretation Comments POCT PREG (test code = 1605) negative On board controls acceptable with present C Line (test code = 3574) POCT PREG LOT # (test code = 3575) [id number] POCT PREG TEST DATE (test 04-23-2021 code = 3576) Lab Interpretation (test code = Normal 34551-0) [facility]"
--- NOTE | 2022-05-01 15:33 | RAD REPORT ---
EXAM DESCRIPTION: CT - Head Brain Wo Cont - 05/01/2022 3:25 pm CLINICAL HISTORY: dizziness, headache, ringing in ears COMPARISON: No comparisons TECHNIQUE: Axial 5 mm thick images of the head were obtained without IV contrast. All CT scans are performed using dose optimization technique as appropriate and may include automated exposure control or mA/KV adjustment according to patient size. FINDINGS: No intracranial hemorrhage, mass, edema or shift of mid-line structures. No acute infarcti on changes seen. No abnormal extra-axial fluid collections. Ventricles are normal. Mastoid air cells and visualized portions of the paranasal sinuses are clear. No acute bony findings. IMPRESSION: Negative non-contrast CT head examination.
--- NOTE | 2022-05-01 16:11 | RAD REPORT ---
EXAM DESCRIPTION: US - Abdomen Exam Limited - 05/01/2022 3:45 pm CLINICAL HISTORY: ABD PAIN COMPARISON: No comparisons FINDINGS: No gallstones, sludge or other abnormalities within the gallbladder lumen. There is no wal l thickening or pericholecystic fluid. No common duct stone or biliary tree dilatation identified. IMPRESSION: Normal gallbladder and biliary tree ultrasound.
[2022-05-01 16:30] LABS: Absolute Lymphocytes (CBC) 1.7 K/uL (0.7-4.9); Hematocrit 39.6 % (36.0-45.0); Lymphocytes % 22.8 % (15.3-44.8); MCV 89.2 fL (80-100); MPV 6.6 fL (7.6-11.3); RBC Red Blood Cell Count 4.44 M/uL (3.86-4.86)
[2022-05-01 16:31] LABS: Urine Blood 2+ (Negative); Urine Glucose Negative (Negative); Urine Protein Negative (Negative); Urine Specific Gravity <=1.005 (1.005-1.030)
[2022-05-01 16:56] LABS: Bilirubin Total 0.5 mg/dL (0.2-1.0); Potassium 3.4 mmol/L (3.5-5.1); Protein, Total 7.9 g/dL (6.4-8.2); Troponin High Sensitivity 4.7 pg/mL (<58.9)
--- NOTE | 2022-05-01 17:16 | RAD REPORT ---
EXAM DESCRIPTION: RAD - Chest Single View - 05/01/2022 3:51 pm CLINICAL HISTORY: CHEST PAIN COMPARISON: Portable 06/04/2016 TECHNIQUE: AP portable chest image was obtained 05/01/2022 3:51 pm . FINDINGS: No acute lung parenchymal process. Small granuloma mid left lung field is unchanged. Heart and vasculature are normal. No measurable pleural effusion and no pneumothorax. No acute bony abnorm ality seen. No acute aortic findings suspected. IMPRESSION: No acute cardiopulmonary process.
[2022-05-01] MEDS ORDERED: METOCLOPRAMIDE 10 MG/2mL INJ ONE (18:22)
[2022-05-01] MEDS ORDERED: NA CHLORIDE 0.9% 1,000 ML ONE (18:23)
[2022-05-01] MEDS ORDERED: KETOROLAC 30 MG/ML INJ ONE (18:23)
[2022-05-01 19:08] LABS: Urine Blood Negative (Negative); Urine Glucose Negative (Negative); Urine Protein Negative (Negative); Urine Specific Gravity >=1.030 (1.005-1.030); Urine pH 5.5 (5.0-7.0)
--- NOTE | 2022-05-01 19:12 | EDPHYS ---
Physician Documentation [facility] Name: Luci Long Age: 36 yrs Sex: Female : 1985 Arrival Date: 05/01/2022 Time: 14:50 Bed 11 Private MD: ED Physician Kt Pavon HPI: 05/01 15:33 This 36 yrs old Female presents to ER via Ambulatory with complaints of Dizziness, kb Abdominal Pain, Headache. 15:33 The patient presents with dizziness. Onset: The symptoms/episode began/occurred 4 kb day(s) ago. Context: occurred at home. Modifying factors: The symptoms are alleviated by nothing, the symptoms are aggravated by nothing. Associated signs and symptoms: Pertinent positives: abdominal pain, headache. Severity of symptoms: At their worst the symptoms were moderate in the emergency department the symptoms are unchanged. Patient's baseline: Neuro: alert and fully oriented, Motor: no deficits, Ambulation: walks without assistance, Speech: normal. The patient has not experienced similar symptoms in the past. The patient has been recently seen by a physician: the ER physician, out of Town, with similar presenting complaints. Pt reports headache to left side of head, dizziness, ringing in her ears, and upper abd/lower chest pain that started 4 days ago. Has been seen at [place] ER for these symptoms twice and was told to come here if symptoms persisted. . 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 - Social history:: Smoking status: Patient reports the use of cigarette tobacco products, smokes one-half pack cigarettes per day, Patient/guardian denies using alcohol. ROS: 15:32 Constitutional: Negative for fever, chills, and weight loss. kb 15:32 Abdomen/GI: Positive for abdominal pain, Negative for nausea, vomiting, and diarrhea. 15:32 Neuro: Positive for dizziness, headache, tinnitus. 15:32 All other systems are negative. Exam: 15:32 Constitutional: This is a well developed, well nourished patient who is awake, alert, kb and in no acute distress. Head/Face: Normocephalic, atraumatic. Eyes: Pupils equal round and reactive to light, extra-ocular motions intact. Lids and lashes normal. Conjunctiva and sclera are non-icteric and not injected. Cornea within normal limits. Periorbital areas with no swelling, redness, or edema. ENT: Moist Mucous membranes Cardiovascular: Regular rate and rhythm with a normal S1 and S2. No gallops, murmurs, or rubs. No pulse deficits. Respiratory: Respirations even and unlabored. No increased work of breathing. Talking in full sentences Skin: Warm, dry with normal turgor. Normal color. MS/ Extremity: Pulses equal, no cyanosis. Neurovascular intact. Full, normal range of motion. Neuro: Awake and alert, GCS 15, oriented to person, place, time, and situation. Moves all extremities. Normal gait. Psych: Awake, alert, with orientation to person, place and time. Behavior, mood, and affect are within normal limits. 15:32 Abdomen/GI: Inspection: abdomen appears normal, Bowel sounds: normal, Palpation: soft, in all quadrants, mild abdominal tenderness, in the right upper quadrant and left upper quadrant. 16:33 ECG was reviewed by the Attending Physician. Vital Signs: 15:08 BP 121 / 91; Pulse 96; Resp 18; Temp 98.3; Pulse Ox 98% on R/A; Weight 78.93 kg; Height ld1 5 ft. 5 in. (165.10 cm); Pain 6/10; 17:02 BP 124 / 87; Pulse 70; Resp 18; Pulse Ox 99% on R/A; Pain 6/10; eh3 18:29 BP 117 / 79; Pulse 75; Resp 18; Pulse Ox 100% on R/A; eh3 15:08 Body Mass Index 28.95 (78.93 kg, 165.10 cm) ld1 MDM: 15:10 Patient medically screened. kb 15:32 Data reviewed: vital signs, nurses notes. Data interpreted: Pulse oximetry: on room air kb is 98 %. Interpretation: normal. 19:11 Counseling: I had a detailed discussion with the patient and/or guardian regarding: the kb historical points, exam findings, and any diagnostic results supporting the discharge/admit diagnosis, lab results, radiology results, the need for outpatient follow up, a family practitioner, to return to the emergency department if symptoms worsen or persist or if there are any questions or concerns that arise at home. 05/01 15:11 Order name: CBC with Diff; Complete Time: 16:32 kb 05/01 15:11 Order name: Troponin HS; Complete Time: 16:59 kb 05/01 15:11 Order name: CMP; Complete Time: 16:59 kb 05/01 15:11 Order name: Lipase; Complete Time: 16:59 kb 05/01 16:31 Order name: Urine Dipstick-Ancillary; Complete Time: 16:32 EDMS 05/01 16:32 Order name: Test, Serum; Complete Time: 17:38 kb 05/01 15:11 Order name: XRAY Chest (1 view); Complete Time: 17:38 kb 05/01 15:11 Order name: CT Head Brain wo Cont; Complete Time: 15:35 kb 05/01 15:11 Order name: US Abdomen Limited; Complete Time: 16:11 kb 05/01 16:32 Order name: [place] Screen Profile; Complete Time: 17:38 kb 05/01 19:09 Order name: Urine Dipstick-Ancillary; Complete Time: 19:11 EDMS 05/01 15:11 Order name: EKG; Complete Time: 15:12 kb 05/01 15:11 Order name: Cardiac monitoring; Complete Time: 16:31 kb 05/01 15:11 Order name: EKG - Nurse/Tech; Complete Time: 16:31 kb 05/01 15:11 Order name: IV Saline Lock; Complete Time: 16:31 kb 05/01 15:11 Order name: Labs collected and sent; Complete Time: 16:31 kb 05/01 15:11 Order name: O2 Per Protocol; Complete Time: 16:31 kb 05/01 15:11 Order name: O2 Sat Monitoring; Complete Time: 16:31 kb EC:33 Rate is 70 beats/min. Rhythm is regular. QRS [place] is Normal. MN interval is normal at kb 134 msec. QRS interval is normal at 86 msec. QT interval is normal at 440 msec. Administered Medications: 18:29 Drug: NS 0.9% 1000 ml Route: IV; Rate: 1000 ml; Site: left antecubital; 3 19:29 Follow up: IV Status: Completed infusion; IV Intake: 1000ml eh3 18:29 Drug: Ketorolac 30 mg Route: IVP; Site: left antecubital; eh3 19:29 Follow up: Response: Marked relief of symptoms eh3 18:29 Drug: Reglan (metoCLOPramide) 10 mg Route: IVP; Site: left antecubital; eh3 19:29 Follow up: Response: Marked relief of symptoms eh3 Disposition: 16:19 Co-signature as Attending Physician, Kt Pavon DO I agree with the assessment and ms3 plan of care. Disposition Summary: 05/01/22 19:11 Discharge Ordered Location: Home kb Condition: Stable kb Diagnosis - Headache kb - Upper abdominal pain, unspecified kb Followup: kb - With: Emergency Department - When: As needed - Reason: Worsening of condition Followup: kb - With: Private Physician - When: 2 - 3 days - Reason: Recheck today's complaints, Continuance of care, Re-evaluation by your physician Discharge Instructions: - Discharge Summary Sheet kb - Abdominal Pain, Adult, [id number] kb - Migraine Headache, [id number] kb - General Headache Without Cause, [id number] kb Forms: - Medication Reconciliation Form kb - Thank You Letter kb - Antibiotic Education kb - Prescription Opioid Use kb Signatures: Dispatcher [employer] EDMS Hellen Rubio, NITHYA-C STRAIGHTENER AND ALIGNER-Kt Ramirez DO DO ms3 Emelina Wall, RN RN ld1 Oxana Foster RN RN eh3 Corrections: (The following items were deleted from the chart) 15:11 15:08 Home Meds: Zofran 4 mg Oral tab 1 tab 4 times per day; ld1 ld1 15:11 15:08 Home Meds: Ativan 0.5 mg Oral tab 1 tab 3 times per day; ld1 ld1
--- NOTE | 2022-05-01 19:12 | ER ---
Nurse's Notes [facility] Name: Luci Long Age: 36 yrs Sex: Female : 1985 Arrival Date: 05/01/2022 Time: 14:50 Bed 11 Private MD: Diagnosis: Headache;Upper abdominal pain, unspecified Presentation: 05/01 15:07 Chief complaint: Patient states: Abdominal pain, dizziness, headache X 4 days. Pt ld1 reports going to [place] twice this week for these symptoms. Coronavirus screen: At this time, the client does not indicate any symptoms associated with coronavirus-19. Ebola Screen: No symptoms or risks identified at this time. Initial Sepsis Screen: Does the patient meet any 2 criteria? No. Patient's initial sepsis screen is negative. Does the patient have a suspected source of infection? No. Patient's initial sepsis screen is negative. Risk Assessment: Do you want to hurt yourself or someone else? Patient reports no desire to harm self or others. Onset of symptoms was May 01, 2022. 15:07 Method Of Arrival: Ambulatory ld1 15:07 Acuity: RICHARD 3 ld1 Triage Assessment: 15:08 General: Appears in no apparent distress. comfortable, Behavior is calm, cooperative, ld1 appropriate for age. Pain: Complains of pain in face, right upper quadrant and left upper quadrant Pain does not radiate. Pain currently is 7 out of 10 on a pain scale. Quality of pain is described as pressure, throbbing. EENT: No signs and/or symptoms were reported regarding the EENT system. Neuro: Level of Consciousness is awake, alert, obeys commands, Oriented to person, place, time, situation. Cardiovascular: Capillary refill < 3 seconds Patient's skin is warm and dry. Respiratory: Airway is patent Respiratory effort is even, unlabored. GI: Abdomen is flat, non-distended, Reports upper abdominal pain. : No signs and/or symptoms were reported regarding the genitourinary system. Derm: No signs and/or symptoms reported regarding the dermatologic system. Musculoskeletal: No signs and/or symptoms reported regarding the musculoskeletal system. 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 - Social history:: Smoking status: Patient reports the use of cigarette tobacco products, smokes one-half pack cigarettes per day, Patient/guardian denies using alcohol. Screenin:12 Abuse screen: Denies threats or abuse. Denies injuries from another. Nutritional ld1 screening: No deficits noted. Tuberculosis screening: No symptoms or risk factors identified. Fall Risk None identified. Assessment: 15:12 Reassessment: See triage assessment. ld1 17:03 Reassessment: Patient and/or family updated on plan of care and expected duration. Pain eh3 level reassessed. Patient is alert, oriented x 3, equal unlabored respirations, skin warm/dry/pink. Patient states symptoms have not improved. 19:30 GI: Bowel sounds present X 4 quads. hyperactive in right upper quadrant, left upper eh3 quadrant, right lower quadrant and left lower quadrant Abd is soft and non tender X 4 quads. Vital Signs: 15:08 BP 121 / 91; Pulse 96; Resp 18; Temp 98.3; Pulse Ox 98% on R/A; Weight 78.93 kg; Height ld1 5 ft. 5 in. (165.10 cm); Pain 6/10; 17:02 BP 124 / 87; Pulse 70; Resp 18; Pulse Ox 99% on R/A; Pain 6/10; eh3 18:29 BP 117 / 79; Pulse 75; Resp 18; Pulse Ox 100% on R/A; eh3 15:08 Body Mass Index 28.95 (78.93 kg, 165.10 cm) ld1 ED Course: 14:50 Patient arrived in ED. rg4 15:04 Hellen Rubio FNP-C [facility]. kb 15:04 Kt Pavon DO is Attending Physician. kb 15:08 Triage completed. ld1 15:08 Arm band placed on right wrist. ld1 15:12 Patient has correct armband on for positive identification. Placed in gown. Bed in low ld1 position. Call light in reach. Side rails up X2. Pulse ox on. NIBP on. Door closed. Noise minimized. Warm blanket given. 15:12 No provider procedures requiring assistance completed. ld1 15:20 Oxana Foster, RN is Primary Nurse. eh3 15:26 CT Head Brain wo Cont In Process Unspecified. EDMS 15:47 US Abdomen Limited In Process Unspecified. EDMS 15:53 XRAY Chest (1 view) In Process Unspecified. EDMS 16:31 Lipase Sent. eh3 16:31 CMP Sent. eh3 16:32 Inserted saline lock: 20 gauge in left antecubital area, using aseptic technique. Blood eh3 collected. 17:02 Test, Serum Sent. eh3 17:02 [place] Screen Profile Sent. eh3 17:03 Door closed. Noise minimized. Lights dimmed. Warm blanket given. eh3 19:30 IV discontinued, intact, bleeding controlled, No redness/swelling at site. Pressure eh3 dressing applied. Administered Medications: 18:29 Drug: NS 0.9% 1000 ml Route: IV; Rate: 1000 ml; Site: left antecubital; eh3 19:29 Follow up: IV Status: Completed infusion; IV Intake: 1000ml eh3 18:29 Drug: Ketorolac 30 mg Route: IVP; Site: left antecubital; eh3 19:29 Follow up: Response: Marked relief of symptoms eh3 18:29 Drug: Reglan (metoCLOPramide) 10 mg Route: IVP; Site: left antecubital; eh3 19:29 Follow up: Response: Marked relief of symptoms eh3 Medication: 15:12 VIS not applicable for this client. ld1 Intake: 19:29 IV: 1000ml; Total: 1000ml. eh3 Outcome: 19:11 Discharge ordered by . kb 19:30 Discharged to home ambulatory. eh3 19:30 Condition: stable 19:30 Discharge instructions given to patient, Instructed on discharge instructions, follow up and referral plans. Demonstrated understanding of instructions, follow-up care. 19:36 Patient left the ED. eh3 Signatures: Dispatcher [employer] Hellen An, NITHYA-C NITHYA-Winnie Lopez rg4 Emeilna Wall RN RN ld1 Oxana Foster, RN RN eh3 Corrections: (The following items were deleted from the chart) 15:11 15:08 Home Meds: Zofran 4 mg Oral tab 1 tab 4 times per day; ld1 ld1 15:11 15:08 Home Meds: Ativan 0.5 mg Oral tab 1 tab 3 times per day; ld1 ld1
[2022-05-01 20:51] VITALS: TEMP 98.3
[2022-05-01 21:03] VITALS: BP 117/79; O2SAT 100
--- NOTE | 2022-05-02 13:56 | EKG ---
Test Date: 2022-05-01 Test Time: 16:15:26 Associate Dean Of Women: CRISTHIAN MEASUREMENT RESULTS: Intervals: Rate: 70 OH: 134 QRSD: 86 QT: 408 QTc: 440 [place]: P: 52 OH: 134 QRS: 66 T: 25 INTERPRETIVE STATEMENTS: Normal sinus rhythm Normal ECG No previous ECG available for comparison Electronically Signed On 05-02-22 13:55:23 CDT by Elian Maria
== END 2022-05-01 19:36 | disposition home or self-care (01) ==
LOC: ER 14:47
DX: R51.9 Headache, unspecified (principal); R10.10 Upper abdominal pain, unspecified; F17.210 Nicotine dependence, cigarettes, uncomplicated; Z88.5 Allergy status to narcotic agent; Z88.8 Allergy status to other drugs, medicaments and biological substances
CPT/HCPCS: 96361; 93005; 85025; 36415; 86308; 84703; 81003 ×2; 84484; 83690; 80053; 70450; 71045; 76705; 96375; 96374; 99284; J2765; J7030

== ENCOUNTER 2022-05-07 09:11 | Emergency (ER) | payer BC ==
--- OUTSIDE RECORDS SUMMARY | 2022-05-07 09:17 | XMS REPORT | Continuity of Care Document ---
:1985 Author Organization [facility] t Address [address] [place] [address] Care Team Providers Name Role Phone PCP, PATIENT DOES NOT HAVE A Primary Care Physician UnavailETHAN Lambert Attending Clinician Unavailable Ethan Martinez Attending Clinician TAYLOR FUENTES Attending Clinician Unavailable Taylor Fuentes MD Attending Clinician Kike Dale Attending Clinician Doctor Unassigned, [place] Attending Clinician Unavailable Hola Sanford Attending Clinician TAYLOR FUENTES Admitting Clinician Unavailable Payers Payer Name Policy Type Policy Number Effective Date Expiration Date [facility] [id number] 2016 CHOICE MEDICAID 00:00:00 [facility] [id number] 2018 00:00:00 Problems Condition Condition Condition Status Onset Resolution Last Treating Co mments Source Name Details Category Date Date Treatment Clinician Date Well woman Well woman Disease Active U nivers exam exam 5-17 ity of 00:00: [place] 00 Medical Branch Over Over Disease Active Univers weight weight 5-17 ity of 00:00: [place] 00 Medical Branch History of History of Disease Active U nivers tubal tubal 1-11 ity of ligation ligation 00:00: [place] 00 Medical Branch Headache Headache Problem Active 2021-04-06 Memoria (finding) (finding) 21:26:47 l Active Pedro Problem 04/06/2021 [facility] Migraine Migraine Problem Active 2021-04-06 Memoria (disorder) (disorder) 21:26:47 l Active Pedro Problem 04/06/2021 [facility] Vertigo Vertigo Problem Active 2021-04-06 Me moria (finding) (finding) 21:26:47 l Active [place] Problem 04/06/2021 [facility] Pain in Pain in Problem Active 2021-04-06 Me moria upper limb upper limb 21:26:47 l (finding) (finding) [place] Active Problem 04/06/2021 [facility] Paresthesi Paresthes Problem Active 2021-04-06 Memoria a ia 21:26:47 l (finding) (finding) [place] Active Problem 04/06/2021 [facility] Allergies, Adverse Reactions, [...] hydrocod Active Memori a one one l Pedro Social History Social Habit Start Date Stop Date Quantity Comments Source History of Cigarette Smoker Universi ty of tobacco use [facility] Exposure to 2022-04-19 2022-04-29 Unable to assess Univers ity of SARS-CoV-2 00:00:00 13:06:[address] [facility] [place] (event) [place] Social History 2020-06-18 2020-06-18 Yandel gasca 18:22:40 18:22:40 Alcohol intake 2017-01-07 2017-01-07 0 /d University of 00:00:00 00:00:00 [facility] Tobacco Comment 2016-04-14 2016-04-14 pt states she Univer sity of 00:00:00 00:00:00 smokes a [address] of [facility] [place] cigarettes per day Branch [facility] [birth year] [facility] Smoking Status Start Date Stop Date Source Smokes tobacco daily 2016-04-14 00:00:00 [facility] ity [facility] Medications Ordered Filled Start Stop Current Ordering Indication Dosage Frequency Signature Comments Components Source Medication Medication Date Date Medication? Clinician (SIG) Name Name meek- 2021- No 1{tbl} 1 tablet, [facility] acetaminoph 04-29 Oral, ity of en-caff 23:30: 23:10 ONCE, 1 [place] (ESGIC) 00 :00 dose, On Medical 50-325-40 04/29/22 Bran ch mg tablet 1 at 1830, tablet Routine LORazepam 2021- No .5mg 0.5 mg, [facility] ers (ATIVAN) 04-29 Oral, ity of tablet 0.5 23:00: 23:09 ONCE, 1 [place] as mg 00 :00 dose, On [facility] 04/29/22 Branch at 1800, MARCELLE ibuprofen 2021- No 800mg 800 mg, Uni vers (IBU) 04-29 Oral, ity of tablet 800 22:00: 21:58 ONCE, 1 [place] as mg 00 :00 dose, On Medical [facility] 04/29/22 Branch at 1700, MARCELLE ondansetron 2021- No 4mg 4 mg, [facility] ers (ZOFRAN-ODT 04-29 Oral, ity of ) 21:15: 21:09 ONCE, 1 [place] disintegrat 00 :00 dose, On Medi jordan ing tablet Thu04/29/22 Bra nch 4 mg at 1615, Routine proMETHazin Yes [id number] 25mg Take 1 Univers e 25 mg 04-29 tablet by ity of tablet 00:00: mouth [place] 00 every 6 Medical (six) Branch hours as needed for Nausea and Vomiting (N/V). topiramate 2019-08 Yes 25 mg = 1 Me moria 25 MG Oral 1-24 tab, PO, l Tablet 17:51: BID, # 60 Blake n [Topamax] 00 tab, 3 Refill(s), Pharmacy: [facility] #[id number], 165.1, cm, 07/17/20 11:28:00 EDGE GLUER, Height, 82.273, kg, 07/17/20 11:28:00 EDGE GLUER, Weight topiramate 2019-08 Yes 25 mg = 1 Me moria 25 MG Oral 1-24 tab, PO, l Tablet 17:51: BID, # 60 Blake n [Topamax] 00 tab, 3 Refill(s), Pharmacy: [id number] #[id number], 165.1, cm, 07/17/20 11:28:00 EDGE GLUER, Height, 82.273, kg, 07/17/20 11:28:00 EDGE GLUER, Weight Ibuprofen 2019-08 Yes 400 mg = 2 Me moria 200 MG Oral 0-26 cap, PO, l Capsule 18:27: Q4H, PRN Blake n [Advil] 00 Pain, # 120 cap, 0 Refill(s) meloxicam 2019-08 Yes 7.5 mg = 1 Me moria 7.5 mg oral 0-26 tab, PO, l tablet 18:27: Daily, # [place] 00 30 tab, 0 Refill(s) Ibuprofen 2019-08 Yes 400 mg = 2 Me moria 200 MG Oral 0-26 cap, PO, l Capsule 18:27: Q4H, PRN Blake n [Advil] 00 Pain, # 120 cap, 0 Refill(s) meloxicam 2019-08 Yes 7.5 mg = 1 Me moria 7.5 mg oral 0-26 tab, PO, l tablet 18:27: Daily, # Pedro 00 30 tab, 0 Refill(s) meclizine 2020- No 25mg 25 mg, Unive rs (TRAVEL-EAS 05-18 Oral, ity of E 02:45: 01:57 ONCE, 1 Abigail (MECLIZINE) 00 :00 dose, [place] Med ical ) tablet 25 05/17/20 at Br anch mg 2145, MARCELLE iohexol 2019- No 120mL 120 mL, Unive rs (OMNIPAQUE 05-18 Intravenou it y of 350 00:00: 00:00 s, ONCE, 1 Abigail BULK-150 00 :00 dose, [place] Medica l mL) 9/24/20 at Branch injection 1900, 120 mL Routine ondansetron 2019- No 4mg 4 mg, Slow Univers (ZOFRAN 05-17 IV Push, ity of (PF)) 23:00: 21:52 ONCE, 1 [place] injection 4 00 :00 dose, [place] Med ical mg 05/17/20 at Branch 1800, MARCELLE NaCl 0.9% 2020- No 1000mL at 999 Uni vers (NS) bolus 05-17-25 mL/hr, ity of infusion 22:00: 01:00 1,000 mL, [place] as 1,000 mL 00 :00 IV Medical Infusion, Branch ONCE, 1 dose, Hoda 05/17/20 at 1700, STAT ibuprofen 2016-0 Yes 600mg Take 1 Unive rs 600 mg 3-31 tablet by ity of tablet 00:00: mouth [place] 00 every 6 Medical (six) Branch hours as needed for Pain (scale 1-3) or Pain (scale 4-6). Take with food or milk. ibuprofen 2017-0 Yes 600mg Take 1 Unive rs 600 mg 3-31 tablet by ity of tablet 00:00: mouth [place] 00 every 6 Medical (six) Branch hours as needed for Pain (scale 1-3) or Pain (scale 4-6). Take with food or milk. ibuprofen 2017-0 Yes 600mg Take 1 Unive rs 600 mg 3-31 tablet by ity of tablet 00:00: mouth [place] 00 every 6 Medical (six) Branch hours as needed for Pain (scale 1-3) or Pain (scale 4-6). Take with food or milk. ibuprofen 2017-0 Yes 600mg Take 1 Unive rs 600 mg 3-31 tablet by ity of tablet 00:00: mouth [place] 00 every 6 Medical (six) Branch hours as needed for Pain (scale 1-3) or Pain (scale 4-6). Take with food or milk. Immunizations Ordered Filled Immunization Date Status Comments [facility] e Immunization Name Name [facility] 2016-09-03 Completed University 00:00:00 [facility] 2016-09-03 Completed University 00:00:00 [facility] 2016-09-03 Completed University of 00:00:00 [facility] 2016-09-03 Completed University of 00:00:00 [place] [facility] TDAP 2014-04-14 Completed University of 00:00:00 [place] [facility] TDAP 2014-04-14 Completed University of 00:00:00 [place] [facility] TDAP 2014-04-14 Completed University of 00:00:00 [place] [facility] TDAP 2014-04-14 Completed University of 00:00:00 [facility] Vital Signs Vital Name Observation Time Observation Value Comments Source Systolic blood 2022-04-29 23:10:00 130 mm[Hg] Univer sity of pressure [place] [facility] Diastolic blood 2022-04-29 23:10:00 78 mm[Hg] Unive rsity of pressure [place] [facility] [place] Heart rate 2022-04-29 23:10:00 78 /min [facility] Respiratory rate 2022-04-29 23:10:00 18 /min Univ ersity of [place] [facility] [place] Oxygen saturation in 2022-04-29 23:10:00 99 /min University of Arterial blood by [facility] Pulse oximetry Branch Body temperature 2022-04-29 18:14:00 36.67 Diane [facility] ersity of [facility] [place] Branch Systolic blood 2022-04-28 03:00:00 134 mm[Hg] Univer sity of pressure [place] [facility] Diastolic blood 2022-04-28 03:00:00 88 mm[Hg] Unive rsity of pressure [place] [facility] Heart rate 2022-04-28 03:00:00 73 /min [facility] Respiratory rate 2022-04-28 03:00:00 10 /min Univ ersity of [place] [facility] Oxygen saturation in 2022-04-28 03:00:00 99 /min University of Arterial blood by [facility] Pulse oximetry Branch Body temperature 2022-04-28 01:20:00 37.22 Diane [facility] ersity of [place] [facility] Body height 2022-04-28 01:20:00 165.1 cm [facility] Body weight 2022-04-28 01:20:00 69.854 kg [facility] BMI 2022-04-28 01:20:00 25.63 kg/m2 [facility] Systolic blood 2020-05-18 01:00:00 107 mm[Hg] Univer sity of pressure [facility] Diastolic blood 2020-05-18 01:00:00 74 mm[Hg] Unive rsity of pressure [facility] Heart rate 2020-05-18 01:00:00 66 /min Universi [facility] Respiratory rate 2020-05-18 01:00:00 17 /min [facility] Oxygen saturation in 2020-05-18 01:00:00 99 /min [facility] Arterial blood by [facility] Pulse oximetry [place] Body temperature 2020-05-17 19:33:00 36.67 Diane [facility] Body height 2020-05-17 19:33:00 162.6 cm [facility] Body weight 2020-05-17 19:33:00 79.379 kg [facility] BMI 2020-05-17 19:33:00 30.04 kg/m2 [facility] Systolic (mm Hg) 2020-09-28 20:29:00 [place] rial [place] Diastolic (mm Hg) 2020-09-28 20:29:00 Mem orial [place] Heart Rate 2020-09-28 20:29:00 [facility] [place] Respitory Rate 2020-09-28 20:29:00 Memori al [place] Height 2020-09-28 20:29:00 165.1 cm [facility] Pedro Weight 2020-09-28 20:29:00 [facility] [place] BMI Calculated 2020-09-28 20:29:00 Memori al [place] Systolic (mm Hg) 2020-07-17 17:28:00 [place] rial [place] Diastolic (mm Hg) 2020-07-17 17:28:00 Mem orial [place] Heart Rate 2020-07-17 17:28:00 Memorial [place] Respitory Rate 2020-07-17 17:28:00 Memori al [place] Height 2020-07-17 17:28:00 165.1 cm [facility] [place] Weight 2020-07-17 17:28:00 [facility] [place] BMI Calculated 2020-07-17 17:28:00 Memori al [place] Systolic (mm Hg) 2020-06-18 18:21:00 [place] rial [place] Diastolic (mm Hg) 2020-06-18 18:21:00 Mem orial [place] Heart Rate 2020-06-18 18:21:00 Memorial [place] Respitory Rate 2020-06-18 18:21:00 Leighton Garcia Height 2020-06-18 18:21:00 165.1 cm Yandel Vasquez Weight 2020-06-18 18:21:00 Yandel Vasquez BMI Calculated 2020-06-18 18:21:00 Leighton Garcia Procedures Procedure Date / Time Performing Clinician Source Performed LIPASE 2022-04-29 19:11:[address] [facility] COMP. METABOLIC PANEL 2022-04-29 19:11:00 Ethan Zhao [facility] ([id number]) [facility] CBC WITH DIFF 2022-04-29 19:11:00 [facility] URINALYSIS 2022-04-29 19:11:00 [facility] CONSENT/REFUSAL FOR 2022-04-29 18:07:52 Doctor Unassigned, No [facility] HEAD WO CONTRAST 2022-04-28 02:47:18 Taylor Fuentes [facility] POCT TEST 2022-04-28 02:02:00 Taylor Fuentes [facility] COMP. METABOLIC PANEL 2022-04-28 01:59:00 Taylor Fuentes [facility] ([id number]) [facility] CBC WITH DIFF 2022-04-28 01:59:[address] [facility] URINALYSIS 2022-04-28 01:59:[address] [facility] URINE DRUG (IMMUNOASSAY) 2022-04-28 01:59:00 Taylor Fuentes [facility] DRUG Medical [facility] SCREEN W/O REFLEX NOTICE OF PRIVACY 2022-04-28 01:28:52 Doctor Unassigned, No [facility] PRACTICES Name [facility] Branch CONSENT/REFUSAL FOR 2022-04-28 01:10:58 Doctor Unassigned, No [facility] Name [facility] Branch AUTHORIZATION FOR 2020-06-27 06:01:00 Doctor Unassigned, No [facility] RELEASE OF PHI [facility] ANGIOGRAM HEAD 2020-05-17 23:57:42 Hol[address] [facility] ANGIOGRAM NECK 2020-05-17 23:57:42 Hola Rubi [facility] POCT TEST 2020-05-17 21:28:00 Hola Rubi [facility] MAGNESIUM 2020-05-17 21:23:00 Hola Rubi [employer] [facility] f [facility] COMP. METABOLIC PANEL 2020-05-17 21:23:00 Hola Rubi [facility] ([id number]) [facility] CBC WITH DIFF 2020-05-17 21:23:00 Hola Rubi Cindy [employer] o f [facility] URINALYSIS 2020-05-17 21:20:00 Hola Rubi Cindy [employer] o [facility] CT HEAD WO CONTRAST 2020-05-17 21:13:44 Hola Rubi [facility] NOTICE OF PRIVACY 2020-05-17 19:11:22 Doctor Unassigned, No Univ [facility] PRACTICES Name [facility] CONSENT/REFUSAL FOR 2020-05-17 19:11:10 Doctor Unassigned, No Un [facility] DIAGNOSIS AND TREATMENT Name [facility] Tubal ligation [facility] Encounters Start End Encounter Admission Attending Care Care Encounter Source Date/Time Date/Time Type Type Clinicians Facility Department ID 2021-06-21 Emergency [facility] [id number] Univers 19:17:06 [facility] 2022-04-29 2022-04-29 Emergency [facility] [id number] Univers 13:45:00 18:12:00 ETHAN [facility] 2022-04-29 2022-04-29 Emergency [facility] [id number] Univers 13:45:00 18:12:00 Ethan Laws ANCRAMDALE [id number] i ty [facility] [id number] [facility] [id number] [facility] 084 Branch 2022-04-27 2022-04-27 Emergency [facility] [id number] Univers 20:26:00 22:54:00 TAYLOR [facility] 2022-04-27 2022-04-27 Emergency [facility] [id number] Univers 20:26:00 22:54:00 [facility] [id number] i [facility] [id number] [facility] [id number] [facility] 084 [place] 2021-04-04 2021-04-04 Ambulatory nullFlavo MNA [id number] Memoria 14:45:00 14:45:00 Pre-Reg r Neurology 07 l Fannin Pedro 2021-04-04 2021-04-04 Ambulatory nullFlavo MNA [id number] Memoria 14:45:00 14:45:00 Pre-Reg r Neurology 07 l Fanninjosephine Vasquez 2021-04-04 2021-04-04 Outpatient VICKY DaleSCHER MISCHER [id number] 09:45:00 09:45:00 Kike Sadi Ady 2021-03-28 2021-03-28 Outpatient MHIE MHIE [id number] Memoria 14:00:00 14:00:00 07 yuriy Vasquez 2020-09-28 2020-09-29 Outpatient nullFlavo MNA [id number] Memoria 20:30:00 05:59:59 r Neurology 06 l Reymundo Vasquez 2020-09-28 2020-09-29 Outpatient nullFlavo MNA [id number] Memoria 20:30:00 05:59:59 r Neurology 06 l Reymundo Kimann 2020-09-28 2020-09-28 Outpatient [id number] 14:30:00 23:59:59 Kike Andrés Ady 2020-09-28 2020-09-28 Outpatient MHIE MHIE [id number] Memoria 14:30:00 14:30:00 06 yuriy Vasquez 2020-07-17 2020-07-18 Outpatient nullFlavo MNA [id number] Memoria 17:30:00 05:59:59 r Neurology 05 l Fanninjosephine Kimann 2020-07-17 2020-07-18 Outpatient nullFlavo MNA [id number] Memoria 17:30:00 05:59:59 r Neurology 05 l Fanninjosephine Kimann 2020-07-17 2020-07-17 Outpatient VICKY DaleSCHDARLENE MISCHER [id number] 11:30:00 23:59:59 Kike Anayeli Garsia 2020-07-17 2020-07-17 Outpatient MHIE MHIE [id number] Memoria 11:30:00 11:30:00 05 yuriy Pedro 2020-06-27 2020-06-27 Orders Doctor JUAN [id number] 00:00:00 00:00:00 Only Unassigned, FLORINDA 350.1.13.10 [facility] 4.2.7.2.686 [facility] [place] [facility] [id number] [facility] 009 [place] 2020-06-18 2020-06-19 Outpatient nullFlavo MNA [id number] Memoria 18:30:00 04:59:59 r Neurology 04 l Fannin [place] 2020-06-18 2020-06-19 Outpatient nullFlavo MNA [id number] Memoria 18:30:00 04:59:59 r Neurology 04 l Fannin [place] 2020-06-18 2020-06-18 Outpatient MANDI DaleMISCHER MHMISCHER [id number] 13:30:00 23:59:59 Kike 04 [facility] 2020-06-18 2020-06-18 Outpatient MHIE MHIE [id number] Memoria 13:30:00 13:30:00 04 l [place] 2020-05-17 2020-05-17 Emergency Hola Rubi [facility] [id number] Univers 14:34:00 21:34:00 Cindy Durbin 350.1.13.10 i [facility] 4.2.7.2.686 [facility] [id number] [facility] 084 [place] 2020-01-18 2020-01-19 Outpatient nullFlavo MNA [id number] Memoria 13:15:00 04:59:59 r Neurology 03 l Fannin [place] 2020-01-18 2020-01-19 Outpatient nullFlavo MNA [id number] Memoria 13:15:00 04:59:59 r Neurology 03 l Fannin [place] 2020-01-18 2020-01-18 Outpatient MANDI DaleMISCHER MHMISCHER [id number] 08:15:00 23:59:59 Kike 03 [facility] 2020-01-18 2020-01-18 Outpatient MHIE MHIE [id number] Memoria 08:15:00 08:15:00 03 l Pedro Results Test Description Test Time Test Comments Results Result Comments Source COMP. METABOLIC PANEL (83261) 2022-04-29 20:06:04 Test Item Value Reference Range Interpretation Comme nts NA (test code = 1313210274) 139 mmol/L 135-145 K (test code = 2218062981) 4.0 mmol/L 3.5-5 CL (test code = 2027025753) 101 mmol/L 98-108 CO2 TOTAL (test code = 1890464628) 28 mmol/L 23-31 AGAP (test code = 9665209946) 2-16 BUN (test code = 2281351707) 5 mg/dL 7-23 L GLUCOSE (test code = 9014665905) 92 mg/dL 70-110 CREATININE (test code = 0.64 mg/dL 0.5-1.04 2037226818) TOTAL BILI (test code = 1.0 mg/dL 0.1-1.7 8923156460) CALCIUM (test code = 4647244525) 9.8 mg/dL 8.6-10.6 T PROTEIN (test code = 7574920384) 8.0 g/dL 6.3-8.2 ALBUMIN (test code = 0136965426) 4.9 g/dL 3.5-5 ALK PHOS (test code = 1565601750) 78 U/L 34-122 ALTv (test code = 1742-6) 18 U/L 5-35 AST(SGOT) (test code = 1329361334) 23 U/L 13-40 eGFR (test code = 7302666012) mL/min/1.73m2 CHANCE (test code = CHANCE) Association [...] tests). Lab Interpretation (test code = Abnormal 00283-6) [facility] Test Item Value Reference Range Interpretation Comments LIPASE (test code = 6915866144) 48 U/L 0-220 Lab Interpretation (test code = Normal 14825-4) [facility] WITH [id number] 19:54:00 Test Item Value Reference Range Interpretation Comments WBC (test code = See_Comment [Automated 4940-2) message] The sy stem which generated this result transmitted reference range : 4.30 - 11.10 10*3/?L. The reference range was not used to interpret this result as normal/abnormal . RBC (test code = See_Comment [Automated 345-8) message] The sy stem which generated this [...] RDW-SD (test code = 40.9 fL 39-49.9 97578-7) RDW-CV (test code = 12.6 % 12-15.5 788-0) PLT (test code = See_Comment H [Automated 777-3) message] The sy stem which generated this result transmitted reference range : 166 - 358 10*3/ ?L. The reference r samantha was not used to interpret this result as normal/abnormal . MPV (test code = 8.4 fL 9.5-12.9 L 29512-6) NRBC/100 WBC (test See_Comment [Automat ed code = 2680081432) message] The system which generated this result transmitted reference range : 0.0 - 10.0 /100 WBCs. The refer ence range was not u sed to interpret th is result as normal/abnormal . NRBC x10^3 (test code See_Comment [Auto mated = 7061270501) message] The s ystem which generated this result transmitted reference range : 10*3/?L. The reference range was not used to interpret this result as normal/abnormal . GRAN MAT (NEUT) % 72.5 % (test code = 770-8) IMM GRAN % (test code 0.30 % = 6946251000) LYMPH % (test code = 21.0 % 736-9) MONO % (test code = 5.7 % 5905-5) EOS % (test code = 0.3 % 713-8) BASO % (test code = 0.2 % 706-2) GRAN MAT x10^3(ANC) 6.21 10*3/uL 1.88-7.09 (test code = 9120105646) IMM GRAN x10^3 (test 0.03 10*3/uL 0-0.06 code = 0105858747) LYMPH x10^3 (test code 1.80 10*3/uL 1.32-3.29 = 731-0) MONO x10^3 (test code 0.49 10*3/uL 0.33-0.92 = 742-7) EOS x10^3 (test code = 0.03 10*3/uL 0.03-0.39 711-2) BASO x10^3 (test code 0.01-0.07 = 704-7) Lab Interpretation Abnormal (test code = 47109-5) [facility]. METABOLIC PANEL (00971)2022-04-28 02:24:27 Test Item Value Reference Range Interpretation Comments NA (test code = 138 mmol/L 135-145 7728356520) K (test code = 3.9 mmol/L 3.5-5 6426179315) CL (test code = 102 mmol/L 98-108 2637183997) CO2 TOTAL (test code 27 mmol/L 23-31 = 0957753208) AGAP (test code = 2-16 3901641906) BUN (test code = 7 mg/dL 7-23 8641193749) GLUCOSE (test code = 108 mg/dL 70-110 3365543226) CREATININE (test code 0.70 mg/dL 0.5-1.04 = 1968459211) TOTAL BILI (test code 0.4 mg/dL 0.1-1.1 = 1774472914) CALCIUM (test code = 9.6 mg/dL 8.6-10.6 8336501079) T PROTEIN (test code 7.3 g/dL 6.3-8.2 = 3814101837) ALBUMIN (test code = 4.5 g/dL 3.5-5 6225777573) ALK PHOS (test code = 78 U/L 34-122 7389274166) ALTv (test code = 18 U/L 5-35 1742-6) AST(SGOT) (test code 23 U/L 13-40 = 3015408369) eGFR (test code = mL/min/1.73m2 1183562760) CHANCE (test code = CHANCE) Association of [...] or urine or abnormalities in imaging tests). [facility] WITH [id number] 02:13:45 Test Item Value Reference Range Interpretation Comments WBC (test code = See_Comment [Automated 6390-2) message] The sy stem which generated this result transmitted reference range : 4.30 - 11.10 10*3/?L. The reference range was not used to interpret this result as normal/abnormal . RBC (test code = See_Comment [Automated 319-8) message] The sy stem which generated this [...] RDW-SD (test code = 40.3 fL 39-49.9 39973-5) RDW-CV (test code = 12.5 % 12-15.5 788-0) PLT (test code = See_Comment H [Automated 777-3) message] The sy stem which generated this result transmitted reference range : 166 - 358 10*3/ ?L. The reference r samantha was not used to interpret this result as normal/abnormal . MPV (test code = 8.4 fL 9.5-12.9 L 81566-6) NRBC/100 WBC (test See_Comment [Automat ed code = 4256698226) message] The system which generated this result transmitted reference range : 0.0 - 10.0 /100 WBCs. The refer ence range was not u sed to interpret th is result as normal/abnormal . NRBC x10^3 (test code See_Comment [Auto mated = 0920906791) message] The s ystem which generated this result transmitted reference range : 10*3/?L. The reference range was not used to interpret this result as normal/abnormal . GRAN MAT (NEUT) % 70.7 % (test code = 770-8) IMM GRAN % (test code 0.30 % = 8755731352) LYMPH % (test code = 21.0 % 736-9) MONO % (test code = 6.8 % 5905-5) EOS % (test code = 0.9 % 713-8) BASO % (test code = 0.3 % 706-2) GRAN MAT x10^3(ANC) 6.10 10*3/uL 1.88-7.09 (test code = 7202822647) IMM GRAN x10^3 (test 0.03 10*3/uL 0-0.06 code = 6757149839) LYMPH x10^3 (test code 1.82 10*3/uL 1.32-3.29 = 731-0) MONO x10^3 (test code 0.59 10*3/uL 0.33-0.92 = 742-7) EOS x10^3 (test code = 0.08 10*3/uL 0.03-0.39 711-2) BASO x10^3 (test code 0.03 10*3/uL 0.01-0.07 = 704-7) Lab Interpretation Abnormal (test code = 41678-5) [facility] [id number] 02:02:00 Test Item Value Reference Range Interpretation Comments POCT PREG (test code = 1605) Negative On board controls acceptable with Present C Line (test code = 3574) POCT PREG LOT # (test code = 3575) [id number] POCT PREG TEST DATE (test 07-23-2023 code = 3576) Lab Interpretation (test code = Normal 97863-8) [facility] [id number] 01:34:20 Unremarkable CTA of the head and neck without high-grade stenosis orvascular occlusions. Preliminary Report Dictated by Resident: Sapna Mitchell MD., have reviewed this studyand agree with theabove report.EXAM: CT ANGIOGRAM HEAD, CT ANGIOGRAM NECK COMPARISON: ?None HISTORY: Stroke suspected, ataxia TECHNIQUE: Axial CT imaging of the [place] and from the skull baseto [...] ataxia TECHNIQUE: Axial CT imaging of the [place] and from the skull baseto [...] reviewed this study and agree with theabove report.[facility] 2020-05-18 01:34:20 Unremarkable CTA of the head and neck without high-grade stenosis orvascular occlusions. Preliminary Report Dictated by Resident: Sapna Mitchell MD., have reviewed this studyand agree with theabove report.EXAM: CT ANGIOGRAM HEAD, CT ANGIOGRAM NECK COMPARISON: ?None HISTORY:Stroke suspected, ataxia TECHNIQUE: Axial CT imaging of the [place] and from the skull baseto [...] arteries are widely patent throughouttheir cou rse. [facility], Radiant Results Inft User - 05/17/2020 8:35 PM CDTEXAM: CT ANGIOGRAM HEAD, CT ANGIOGRAM NECKCOMPARISON: NoneHISTORY: Stroke suspected, ataxia TECHNIQUE: Axial CT imaging of the [place] and from the skull baseto [...] reviewed this study and agree with theabove report.[facility] 22:10:00 Test Item Value Reference Range Interpretation Comments APPEARANCE (test code = Clear Clear 9348863839) COLOR (test code = Yellow Yellow 1629317574) PH (test code = 4.8-8.0 7066128982) SP GRAVITY (test code = 1.003-1.030 4485263150) GLU U QUAL (test code = Normal Normal 3113962898) BLOOD (test code = 2+ Negative A 2302123050) KETONES (test code = Negative Negative 4333135345) PROTEIN (test code = Negative Negative 2887-8) UROBILIN (test code = 2.0 mg/dL Normal A 5303712667) BILIRUBIN (test code = Negative Negative 5177629707) NITRITE (test code = Negative Negative 6070209092) LEUK LEONEL (test code = Negative Negative 5377075851) RBC/HPF (test code = See_Comment H [Autom ated message] 2429849826) The system [employer] generated this result transmit desean reference range : 0 - 3 HPF. The refe rence range was not u sed to interpret th is result as normal/abnormal . WBC/HPF (test code = See_Comment [Autom ated message] 3954613590) The system [employer] generated this result transmit desean reference range : 0 - 5 HPF. The refe rence range was not u sed to interpret th is result as normal/abnormal . BACTERIA (test code = Few Negative A 4569127038) MUCOUS (test code = Slight Negative LPF A 5120466376) SQ EPITH (test code = HPF 8812133415) Lab Interpretation (test Abnormal code = 74950-1) [facility] (25109)2020-05-17 21:58:00 Test Item Value Reference Range Interpretation Comments NA (test code = 140 mmol/L 135-145 7903078391) K (test code = 3.8 mmol/L 3.5-5 2468468661) CL (test code = 103 mmol/L 98-108 2822073913) CO2 TOTAL (test code = 27 mmol/L 23-31 8399595346) AGAP (test code = 2-16 6681198720) BUN (test code = 7 mg/dL 7-23 8006735722) GLUCOSE (test code = 106 mg/dL 70-110 8149439926) CREATININE (test code 0.68 mg/dL 0.5-1.04 = 2691220703) TOTAL BILI (test code 0.3 mg/dL 0.1-1.1 = 9352698045) CALCIUM (test code = 9.3 mg/dL 8.6-10.6 3578505841) T PROTEIN (test code = 7.6 g/dL 6.3-8.2 3164505917) ALBUMIN (test code = 4.2 g/dL 3.5-5 4392703214) ALK PHOS (test code = 93 U/L 34-122 8895607612) ALTv (test code = 18 U/L 5-35 2-6) AST(SGOT) (test code = 25 U/L 13-40 9562575888) eGFR Calculation mL/min/1.73m2 (Non-) (test code = 4235197012) eGFR Calculation mL/min/1.73m2 () (test code = 1251064135) CHANCE (test code = CHANCE) Association of [...] or urine or abnormalities in imaging tests). [facility] 21:58:00 Test Item Value Reference Range Interpretation Comments MAGNESIUM (test code = 0033078941) 2.3 mg/dL 1.7-2.4 Lab Interpretation (test code = Normal 58497-6) [facility] WITH [id number] 21:46:00 Test Item Value Reference Range Interpretation Comments WBC (test code = See_Comment [Automated 5490-2) message] The sy stem which generated this result transmitted reference range : 4.30 - 11.10 10*3/?L. The reference range was not used to interpret this result as normal/abnormal . RBC (test code = See_Comment [Automated 789-8) message] The sy stem which generated this [...] RDW-SD (test code = 42.3 fL 39-49.9 21437-7) RDW-CV (test code = 12.9 % 12-15.5 788-0) PLT (test code = See_Comment H [Automated 777-3) message] The sy stem which generated this result transmitted reference range : 166 - 358 10*3/ ?L. The reference r samantha was not used to interpret this result as normal/abnormal . MPV (test code = 8.9 fL 9.5-12.9 L 48835-0) NRBC/100 WBC (test See_Comment [Automat ed code = 6620536225) message] The system which generated this result transmitted reference range : 0.0 - 10.0 /100 WBCs. The refer ence range was not u sed to interpret th is result as normal/abnormal . NRBC x10^3 (test code <0.01 See_Comment [Auto mated = 6599922073) message] The s ystem which generated this result transmitted reference range : 10*3/?L. The reference range was not used to interpret this result as normal/abnormal . GRAN MAT (NEUT) % 63.4 % (test code = 770-8) IMM GRAN % (test code 0.20 % = 7034120250) LYMPH % (test code = 28.3 % 736-9) MONO % (test code = 6.1 % 5905-5) EOS % (test code = 1.5 % 713-8) BASO % (test code = 0.5 % 706-2) GRAN MAT x10^3(ANC) 5.54 10*3/uL 1.88-7.09 (test code = 8393415019) IMM GRAN x10^3 (test <0.03 0-0.06 code = 9925014350) LYMPH x10^3 (test code 2.47 10*3/uL 1.32-3.29 = 731-0) MONO x10^3 (test code 0.53 10*3/uL 0.33-0.92 = 742-7) EOS x10^3 (test code = 0.13 10*3/uL 0.03-0.39 711-2) BASO x10^3 (test code 0.04 10*3/uL 0.01-0.07 = 704-7) Lab Interpretation Abnormal (test code = 84432-4) [facility] [id number] 21:35:30 No acute intracranial abnormality. Preliminary Report [...] calvarium and central skull base are unremarkable. [facility], Radiant Results Inft User - 05/17/2020 4:36 [...] The ASPECTS score is estimated to be 10..I, Sapna Dash MD., have reviewed this study and agree with theabove report. [facility] [id number] 21:28:00 Test Item Value Reference Range Interpretation Comments POCT PREG (test code = 1605) negative On board controls acceptable with present C Line (test code = 3574) POCT PREG LOT # (test code = 3575) [id number] POCT PREG TEST DATE (test 04-23-2021 code = 3576) Lab Interpretation (test code = Normal 66033-7) [facility]"
[2022-05-07 09:36] LABS: Urine Blood 1+ (Negative); Urine Glucose Negative (Negative); Urine Protein Negative (Negative); Urine Specific Gravity 1.015 (1.005-1.030)
[2022-05-07 10:02] LABS: Urine Specific Gravity/Preg 1.015 (1.005-1.030)
[2022-05-07 10:56] LABS: Absolute Lymphocytes (CBC) 1.7 K/uL (0.7-4.9); Hematocrit 37.2 % (36.0-45.0); MCV 87.5 fL (80-100); MPV 6.3 fL (7.6-11.3); RBC Red Blood Cell Count 4.24 M/uL (3.86-4.86)
[2022-05-07 11:13] LABS: Albumin 3.7 g/dL (3.4-5.0); Bilirubin Total 0.6 mg/dL (0.2-1.0); Potassium 3.6 mmol/L (3.5-5.1); Protein, Total 7.3 g/dL (6.4-8.2)
--- NOTE | 2022-05-07 11:19 | RAD REPORT ---
EXAM DESCRIPTION: CT - Abdomen Pelvis W Contrast - 05/07/2022 10:55 am CLINICAL HISTORY: Epigastric pain COMPARISON: No comparisons TECHNIQUE: Biphasic, helical CT imaging of the abdomen and pelvis was performed following 100 ml non -ionic IV contrast. No oral contrast administered. All CT scans are performed using dose optimization technique as appropriate and may include automated exposure control or mA/KV adjustment according to patient size. FINDINGS: No suspicious findings in the lung bases. The liver, spleen, and pancreas show no suspicious findings. Gallbladder and biliary tree are also wi thout suspicious finding. Symmetric renal function is seen with no hydronephrosis or suspicious renal mass. No pyelonephritis o r acute parenchymal process. No bladder abnormalities. No adrenal abnormalities. Uterus and ovaries s how no suspicious findings. No ovarian cyst rupture or hemorrhage findings. Trace fluid in the cul de sac is within physiologic limits. No stomach or small bowel abnormality. In the right mid abdomen anterior to the IVC the renal level t here is a 5 x 2 cm homogeneous thin-walled fluid attenuation mass. This is likely an incidental mesen teric cyst. This is not regarded as significant. Appendix is normal. No active GI process identifiabl e. No free air, free fluid or inflammatory stranding. No soft tissue mass or bulky lymphadenopathy. A small fat only umbilical hernia is present. No acute congestion or edema of the herniated fat. No suspicious bony findings. IMPRESSION: Contrast enhanced CT abdomen and pelvis showing no acute or emergent finding. Nonacute findings detailed in the body of the report.
--- NOTE | 2022-05-07 12:28 | EDPHYS ---
Physician Documentation [facility] Name: Luci Long Age: 36 yrs Sex: Female : 1985 Arrival Date: 05/07/2022 Time: 09:13 Bed 14 Private MD: ED Physician Ramón Bajwa HPI: 05/07 10:29 This 36 yrs old Female presents to ER via Ambulatory with complaints of High Blood pm1 Pressure. 10:29 The patient has elevated blood pressure and discovered this at home, with a home pm1 device. Onset: The symptoms/episode began/occurred 1 week(s) ago. Modifying factors: The symptoms are aggravated by Nothing, The symptoms are alleviated by Nothing. Associated signs and symptoms: Pertinent positives: Epigastric abdominal pain, Pertinent negatives: nausea, vomiting, Diarrhea. Severity of symptoms: in the emergency department the blood pressure is now normal. The blood pressure problem is resolved, and did so just prior to arrival. The patient has experienced similar episodes in the past, Patient has been seen multiple times in [place] [facility] and once in [facility] here for the same complaints. Patient with no acute findings with each ER visit. Patient followed up with her PCP, Dr. Mikey Pinon, on Thursday and was prescribed Wellbutrin and IBS medication. Patient reported elevated blood pressure last night and this morning, contacted her PCP office in the morning and was instructed to report to the ER for evaluation and treatment. 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 - Social history:: Smoking status: Patient reports the use of cigarette tobacco products, smokes one-half pack cigarettes per day. ROS: 10:29 Constitutional: Negative for fever, chills, and weight loss, Cardiovascular: Negative pm1 for chest pain, palpitations, and edema, Respiratory: Negative for shortness of breath, cough, wheezing, and pleuritic chest pain, Back: Negative for injury and pain, MS/Extremity: Negative for injury and deformity, Skin: Negative for injury, rash, and discoloration, Neuro: Negative for headache, weakness, numbness, tingling, and seizure. 10:29 Abdomen/GI: Positive for abdominal pain, Negative for nausea, vomiting, and diarrhea. 10:29 All other systems are negative. Exam: 10:29 Constitutional: This is a well developed, well nourished patient who is awake, alert, pm1 and in no acute distress. Head/Face: Normocephalic, atraumatic. 10:29 Cardiovascular: Regular rate and rhythm with a normal S1 and S2. No gallops, murmurs, or rubs. Normal PMI, no JVD. No pulse deficits. Respiratory: Lungs have equal breath sounds bilaterally, clear to auscultation and percussion. No rales, rhonchi or wheezes noted. No increased work of breathing, no retractions or nasal flaring. 10:29 Back: No spinal tenderness. No costovertebral tenderness. Full range of motion. Skin: Warm, dry with normal turgor. Normal color with no rashes, no lesions, and no evidence of cellulitis. MS/ Extremity: Pulses equal, no cyanosis. Neurovascular intact. Full, normal range of motion. 10:29 Eyes: Exam is negative for acute changes, Extraocular movements: no acute changes, Conjunctiva: no acute changes, no injection. 10:29 ENT: Exam is negative for acute changes, Mouth: no acute changes, Lips: normal, moist, Oral mucosa: normal, pink and intact, moist. 10:29 Abdomen/GI: Inspection: abdomen appears normal, Palpation: soft, in all quadrants, mild abdominal tenderness, in the right upper quadrant. 10:29 Neuro: Exam negative for acute changes, Orientation: is normal, Mentation: is normal, Motor: is normal, moves all fours. 11:10 ECG was reviewed by the Attending Physician. pm1 Vital Signs: 09:17 BP 125 / 90; Pulse 84; Resp 16; Temp 98.6(TE); Pulse Ox 100% on R/A; Weight 78.93 kg; vg1 Height 5 ft. 5 in. (165.10 cm); Pain 4/10; 09:42 BP 115 / 70; Pulse 75; Resp 16; Pulse Ox 99% ; Pain 3/10; ko1 10:56 BP 122 / 76; Pulse 72; Resp 16; Pulse Ox 98% ; ko1 11:40 BP 119 / 78; Pulse 62; Resp 16; Pulse Ox 98% ; ko1 12:40 BP 104 / 66; Pulse 65; Resp 18; Temp 98.0; Pulse Ox 99% on R/A; ph 09:17 Body Mass Index 28.95 (78.93 kg, 165.10 cm) vg1 Jerod Coma Score: 09:42 Eye Response: spontaneous(4). Verbal Response: oriented(5). Motor Response: obeys ko1 commands(6). Total: 15. MDM: 09:30 Patient medically screened. pm1 12:20 Physician consultation: Mikey Donovan MD was called at 10:06, was contacted at 12:24, pm1 regarding consult, patient's condition, and will see patient in office, next week, His impression is she is having possibly anxiety attacks and I informed him that she had concerns over taking Wellbutrin and has not started taking it. He will see her next week. 12:26 Data reviewed: vital signs. Data interpreted: Pulse oximetry: on room air is 98 %. pm1 Interpretation: normal. 12:26 Counseling: I had a detailed discussion with the patient and/or guardian regarding: the pm1 historical points, exam findings, and any diagnostic results supporting the discharge/admit diagnosis, lab results, radiology results, the need for outpatient follow up, a family practitioner, call to setup appointment next week with Dr. Donovan, to return to the emergency department if symptoms worsen or persist or if there are any questions or concerns that arise at home. 05/07 09:37 Order name: Urine Dipstick-Ancillary; Complete Time: 10:00 EDMS 05/07 09:53 Order name: Urine --Ancillary (enter results); Complete Time: 10:03 bd 05/07 10:28 Order name: CBC with Diff; Complete Time: 11:14 pm1 05/07 10:28 Order name: CMP; Complete Time: 11:14 pm1 05/07 10:28 Order name: Lipase; Complete Time: 11:14 pm1 05/07 10:28 Order name: Troponin High Sensitivity; Complete Time: 11:14 pm1 05/07 10:28 Order name: CT Abd/Pelvis - IV Contrast Only; Complete Time: 11:23 pm1 05/07 10:28 Order name: IV Saline Lock; Complete Time: 11:03 pm1 05/07 10:28 Order name: Labs collected and sent; Complete Time: 10:44 pm1 05/07 10:28 Order name: EKG; Complete Time: 10:29 pm1 05/07 10:28 Order name: EKG - Nurse/Tech; Complete Time: 11:03 pm1 EC:10 Rate is 66 beats/min. Rhythm is regular, Normal Sinus Rhythm with No ectopy. QRS [place] pm1 is Normal. NV interval is normal. QRS interval is normal. QT interval is normal. No Q waves. T waves are Normal. No ST changes noted. Clinical impression: Normal ECG. Administered Medications: No medications were administered Disposition Summary: 05/07/22 12:27 Discharge Ordered Location: Home pm1 Problem: new pm1 Symptoms: have improved pm1 Condition: Stable pm1 Diagnosis - Abdominal pain, unspecified pm1 Followup: pm1 - With: Emergency Department - When: As needed - Reason: Worsening of condition Followup: pm1 - With: Private Physician - When: 2 - 3 days - Reason: Recheck today's complaints, Continuance of care, Re-evaluation by your physician Discharge Instructions: - Discharge Summary Sheet pm1 - Abdominal Pain, Adult pm1 - Hypertension, Adult pm1 - Smoking Tobacco Information, Adult pm1 - Preventing Hypertension pm1 Forms: - Medication Reconciliation Form pm1 - Thank You Letter pm1 - Antibiotic Education pm1 - Prescription Opioid Use pm1 - Work release form ko1 Addendum: 05/08/2022 19:42 Co-signature as Attending Physician, Ramón Bajwa MD. r n Signatures: Dispatcher [employer] Ramón Rubio MD MD rn Marinas, Patrick, OLE SHIPMASTER pm1 Bethanie Hunter, RN RN vg1
--- NOTE | 2022-05-07 12:28 | ER ---
Nurse's Notes [facility] Name: Luci Long Age: 36 yrs Sex: Female : 1985 Arrival Date: 05/07/2022 Time: 09:13 Bed 14 Private MD: Diagnosis: Abdominal pain, unspecified Presentation: 05/07 09:17 Chief complaint: Patient states: "my blood pressure was 174/100 when I woke up; last vg1 night it was 193/109 and I went to [facility] and they took my blood pressure twice and sent me home bc they told me there was nothing else they can do with the testing since I had already done all the things with [facility]" Pt states pain under Right breast and Left shoulder; states headache, denies SOB or blurred vision. Coronavirus screen: Vaccine status: Patient reports being unvaccinated. Client denies travel out of the [place] in the last 14 days. Ebola Screen: Patient denies exposure to infectious person. Patient denies travel to an Ebola-affected area in the 21 days before illness onset. Initial Sepsis Screen: Does the patient meet any 2 criteria? No. Patient's initial sepsis screen is negative. Does the patient have a suspected source of infection? No. Patient's initial sepsis screen is negative. Risk Assessment: Do you want to hurt yourself or someone else? Patient reports no desire to harm self or others. Onset of symptoms was May 06, 2022. 09:17 Method Of Arrival: Ambulatory vg1 09:17 Acuity: RICHARD 3 vg1 Triage Assessment: 09:21 General: Appears uncomfortable, Behavior is calm, cooperative. Pain: Complains of pain vg1 in right breast and left shoulder Pain currently is 4 out of 10 on a pain scale. Cardiovascular: Patient's skin is warm and dry. Respiratory: Airway is patent Respiratory effort is even, unlabored. 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 - Social history:: Smoking status: Patient reports the use of cigarette tobacco products, smokes one-half pack cigarettes per day. Screenin:42 Abuse screen: Denies threats or abuse. Denies injuries from another. Nutritional ko1 screening: No deficits noted. Tuberculosis screening: No symptoms or risk factors identified. Fall Risk None identified. Assessment: 09:42 General: Appears in no apparent distress. comfortable, Behavior is calm, cooperative, ko1 appropriate for age, Reports. Pain: Denies pain. Neuro: No deficits noted. Cardiovascular: Reports "high blood pressure". Respiratory: No deficits noted. GI: No deficits noted. : No deficits noted. EENT: No deficits noted. Derm: No deficits noted. Musculoskeletal: No deficits noted. 12:39 Reassessment: Patient appears in no apparent distress at this time. Patient and/or ph family updated on plan of care and expected duration. Pain level reassessed. Patient is alert, oriented x 3, equal unlabored respirations, skin warm/dry/pink. Pt d/c home. Vital Signs: 09:17 BP 125 / 90; Pulse 84; Resp 16; Temp 98.6(TE); Pulse Ox 100% on R/A; Weight 78.93 kg; vg1 Height 5 ft. 5 in. (165.10 cm); Pain 4/10; 09:42 BP 115 / 70; Pulse 75; Resp 16; Pulse Ox 99% ; Pain 3/10; ko1 10:56 BP 122 / 76; Pulse 72; Resp 16; Pulse Ox 98% ; ko1 11:40 BP 119 / 78; Pulse 62; Resp 16; Pulse Ox 98% ; ko1 12:40 BP 104 / 66; Pulse 65; Resp 18; Temp 98.0; Pulse Ox 99% on R/A; ph 09:17 Body Mass Index 28.95 (78.93 kg, 165.10 cm) vg1 [place] Coma Score: 09:42 Eye Response: spontaneous(4). Verbal Response: oriented(5). Motor Response: obeys ko1 commands(6). Total: 15. ED Course: 09:13 Patient arrived in ED. mr 09:18 Pete Pastor NP is PHCP. pm1 09:18 Ramón Bajwa MD is Attending Physician. pm1 09:21 Triage completed. vg1 09:21 Arm band placed on. vg1 09:26 Camille Bucio, RN is Primary Nurse. ko1 09:42 Patient has correct armband on for positive identification. Bed in low position. Call ko1 light in reach. Side rails up X 1. 10:44 Troponin High Sensitivity Sent. ko1 10:44 CBC with Diff Sent. ko1 10:44 CMP Sent. ko1 10:44 Lipase Sent. ko1 10:[address] via wheelchair. ko1 10:57 CT Abd/Pelvis - IV Contrast Only In Process Unspecified. EDMS 11:[address] Patient [address] back from [address]. ko1 11:02 EKG done, by ED staff. ko1 12:40 No provider procedures requiring assistance completed. IV discontinued, intact, ph bleeding controlled, No redness/swelling at site. Pressure dressing applied. Administered Medications: No medications were administered Medication: 09:42 VIS not applicable for this client. ko1 Outcome: 12:27 Discharge ordered by MD. pm1 12:40 Discharged to home ambulatory. ph 12:40 Condition: good 12:40 Discharge instructions given to patient, Instructed on discharge instructions, follow up and referral plans. Demonstrated understanding of instructions, follow-up care. 12:41 Patient left the ED. ph Signatures: Dispatcher [employer] EDMI Amalia Dubois mr Marilou Foster RN RN Pete Pastor, OLE WEIGHMASTER LEAD pm1 Bethanie Hunter RN RN [facility] Camille Bucio, RN RN ko1 Corrections: (The following items were deleted from the chart) 09:23 09:17 Coronavirus screen: Vaccine status: Patient reports receiving the 2nd dose of the vg1 covid vaccine. Client denies travel out of the [place] in the last 14 days. vg1
[2022-05-08 02:11] VITALS: BP 104/66; TEMP 98; O2SAT 99
--- NOTE | 2022-05-08 13:38 | EKG ---
Test Date: 2022-05-07 Test Time: 11:01:13 Pulmonologist: KV MEASUREMENT RESULTS: Intervals: Rate: 66 VA: 132 QRSD: 86 QT: 430 QTc: 450 [place]: P: -23 VA: 132 QRS: 58 T: 28 INTERPRETIVE STATEMENTS: Normal sinus rhythm Normal ECG Compared to ECG 05/01/2022 16:15:26 No significant changes Electronically Signed On 05-08-22 13:35:27 CDT by Elian Maria
== END 2022-05-07 12:41 | disposition home or self-care (01) ==
LOC: ER 09:11
DX: R10.11 Right upper quadrant pain (principal); Z88.5 Allergy status to narcotic agent; Z88.8 Allergy status to other drugs, medicaments and biological substances
CPT/HCPCS: 93005; 85025; 36415; 81025; 81003; 84484; 83690; 80053; 74177; 99284; Q9967